=== PATIENT | male | born 1980 | race Two or more races ===

== ENCOUNTER 2018-06-08 13:33 | Inpatient (IN) | payer OTHER ==
[2018-06-08 14:47] VITALS: BMI 31.3
--- NOTE | 2018-06-08 17:58 | HP ---
CIWA Score - Admission Criteria OASAS Guidelines: Admission for Medically Managed Detox: Requires at least one of the followin. CIWA greater than 12 2. Seizures within the past 24 hours 3. Delirium tremens within the past 24 hours 4. Hallucinations within the past 24 hours 5. Acute intervention needed for co occurring medical disorder 6. Acute intervention needed for co occurring psychiatric disorder 7. Severe withdrawal that cannot be handled at a lower level of care (continued vomiting, continued diarrhea, abnormal vital signs) requiring intravenous medication and/or fluids 8. Admission ROS [facility] Chief Complaint: Here for rehab. Allergies/Adverse Reactions: Allergies Allergy/AdvReac Type Severity Reaction Status Date / Time Fish Containing Products Allergy Severe Rash Verified 06/08/18 17:12 penicillin G Allergy Severe Swelling Verified 06/08/18 17:12 History of Present Illness: Discharged fro [facility] on 06/04 after 12 days treatment for depression. States was put on Seroquel and continued on Synthroid. Patient states relapsed with alcohol, Xanax, and heroin last 4 days. States last used on 06/06. Patient on [facility] OT - Clinic 8 - [phone]. States last medicated today w/ methadone 110 mg PO. Denies seizures and blackouts. Hx two overdoses - last in 2009. Exam Limitations: No Limitations - Ebola screening Have you traveled outside of the country in the last 21 days: No (N) Have you had contact with anyone from an Ebola affected area: No Have you been sick,other than usual withdrawal symptoms: No Do you have a fever: No - Review of Systems Constitutional: Diaphoresis, Changes in sleep (Difficulty falling asleep) EENT: reports: Blurred Vision Respiratory: reports: No Symptoms reported Cardiac: reports: No Symptoms Reported GI: reports: No Symptoms Reported : reports: No Symptoms Reported Musculoskeletal: reports: No Symptoms Reported Integumentary: reports: No Symptoms Reported Neuro: reports: Tremors Endocrine: reports: No Symptoms Reported Hematology: reports: No Symptoms Reported Psychiatric: reports: Judgement Intact, Orientated x3, Agitated, Anxious, Depressed (Denies thoughts of harming self or others) Patient History - Patient Medical History Hx Anemia: No Hx Asthma: No Hx Chronic Obstructive Pulmonary Disease (COPD): No Hx Cancer: No Hx Cardiac Disorders: No Hx Congestive Heart Failure: No Hx Hypertension: No Hx Hypercholesterolemia: No Hx Pacemaker: No HX Cerebrovascular Accident: No Hx Seizures: No Hx Dementia: No Hx Diabetes: No Hx Gastrointestinal Disorders: No Hx Liver Disease: No Hx Genitourinary Disorders: No Hx Sexually Transmitted Disorders: No Hx Renal Disease (ESRD): No Hx Thyroid Disease: Yes (On Synthroid) Hx Human Immunodeficiency Virus (HIV): No (NEGATIVE HX) Hx Hepatitis C: Yes (ALSO HEPATITIS A AND B, treated with Harvoni) Hx Depression: Yes Hx Suicide Attempt: No Hx Schizophrenia: No - Patient Surgical History Past Surgical History: No Hx Neurologic Surgery: No Hx Cataract Extraction: No Hx Cardiac Surgery: No Hx Lung Surgery: No Hx Breast Surgery: No Hx Breast Biopsy: No Hx Abdominal Surgery: No Hx Appendectomy: No Hx Cholecystectomy: No Hx Genitourinary Surgery: No Hx Section: No Hx Orthopedic Surgery: No Anesthesia Reaction: No - PPD History Previous Implant?: Yes Documented Results: Negative w/proof Implanted On Prior R Admission?: Yes Date: 04/07/15 Results: 0 mm PPD to be Administered?: Yes - Smoking Cessation Smoking history: Current every day smoker Have you smoked in the past 12 months: Yes Aproximately how many cigarettes per day: 15 Cigars Per Day: 0 Hx Chewing Tobacco Use: No Initiated information on smoking cessation: Yes 'Breaking Loose' booklet given: 06/08/18 - Substance & Tx. History Hx Alcohol Use: Yes Hx Substance Use: Yes Substance Use Type: Alcohol, Cocaine, Heroin - Substances Abused Heroin Route: Injection Frequency: 3-6 times per week Amount used: 6 bags Age of first use: 16 Date of Last Use: 06/06/18 Alcohol-beer Route: Oral Frequency: Daily Amount used: 1-6 pk. Age of first use: 15 Date of Last Use: 06/06/18 Xanax Route: Oral Frequency: Daily Amount used: 10 mg. Age of first use: 15 Date of Last Use: 06/07/18 Cocaine Route: Injection Frequency: 3-6 times per week Age of first use: 15 Date of Last Use: 06/06/18 Family Disease History - Family Disease History Family Disease History: Other: Grandparent (ALCOHOL), Father (ALCOHOL) Admission Physical Exam BHS - Vital Signs Vital Signs: Vital Signs - 24 hr 12/11/18 14:40 Temperature 97.1 F L Pulse Rate 90 Respiratory 20 Rate Blood Pressure 119/62 - Physical General Appearance: Yes: Nourished, Appropriately Dressed, Tremorous (Mild tremors), Sweating (Facial moisture), Anxious HEENTM: Yes: EOMI (Jerking movement of eyes on lateral gaze), Hearing grossly Normal, Normal Voice, CELIA (Pupils = 6 mm), Pharynx Normal Respiratory: Yes: Wheezing (Insp wheeze RUL. No rales, rhonchi. No SOB. Noisy, non-productive cough) Neck: Yes: No masses,lesions,Nodules, Supple Breast: Yes: Breast Exam Deferred Cardiology: Yes: Regular Rhythm, Regular Rate, S1, S2 Abdominal: Yes: Normal Bowel Sounds, Non Tender, Soft Genitourinary: Yes: Within Normal Limits Back: Yes: Normal Inspection Musculoskeletal: Yes: full range of Motion, Gait Steady Extremities: Yes: Normal Capillary Refill, Normal Inspection, Normal Range of Motion, Tremors (Mild tremeoers) Neurological: Yes: media marketing specialist II-XII NML intact (Jerking movement of eyes on lateral gaze), Fully Oriented, Alert, Motor Strength 5/5, Normal Mood/Affect, Normal Response Integumentary: Yes: Normal Color, Dry, Warm, Track Mckinnon (Increased erythema, wamth, and swelling at (R) hand track rafael site.) Lymphatic: Yes: Within Normal Limits - Diagnostic (1) Alcohol use disorder, moderate, in early remission Current Visit: Yes Status: Acute (2) Sedative, hypnotic or anxiolytic use disorder, mild, in early remission Current Visit: Yes Status: Acute (3) Tinea pedis Current Visit: Yes Status: Chronic Qualifiers: Laterality: bilateral Qualified Code(s): B35.3 - Tinea pedis (4) Cellulitis of hand Current Visit: Yes Status: Acute (5) Cocaine dependence Current Visit: No Status: Chronic Qualifiers: Substance use status: uncomplicated Qualified Code(s): F14.20 - Cocaine dependence, uncomplicated (6) Methadone maintenance therapy patient Current Visit: Yes Status: Chronic (7) Inspiratory wheeze on examination Current Visit: Yes Status: Acute Comment: Without dyspnea. With non- productive cough. Denies hx asthma/COPD (8) Nystagmus Current Visit: Yes Status: Suspected (9) Hypothyroid Current Visit: Yes Status: Chronic Qualifiers: Hypothyroidism type: unspecified Qualified Code(s): E03.9 - Hypothyroidism , unspecified Cleared for Admission S - Detox or Rehab Claeared for Rehab Admission: Yes [facility] Breath Alcohol Content Breath Alcohol Content: 0 Urine Drug Screen - Results Drug Screen Negative: No Urine Drug Screen Results: LIANET-Cocaine, OPI-Opiates, BZO-Benzodiazepines, MTD- Methadone Inpatient Rehab Admission - Initial Determination Are CD services needed?: Yes Free of communicable disease: Yes Not in need of hospitalization: Yes - Rehab Admission Criteria Previous failed treatment: Yes Poor recovery environment: Yes Comorbidities: Yes Lacks judgement: No Patient is meeting Inpatient Rehab admission criteria:: Yes
[2018-06-08] MEDS ORDERED: MAGNESIUM HYDROX 2400MG/30ML ORAL SUSPENSION 30 ML CUP PO PRN (18:22)
[2018-06-08] MEDS ORDERED: ACETAMINOPHEN 325 MG TABLET (FP) PO PRN (18:22)
[2018-06-08] MEDS ORDERED: IBUPROFEN 400 MG TABLET (FP) PO PRN (18:22)
[2018-06-08] MEDS ORDERED: MAG HYDROX/AL HYDROX/SIMETH 30 ML UNIT-DOSE CUP PO PRN (18:22)
[2018-06-08] MEDS ORDERED: MENTHOL/PHENOL 1 EACH UD MM PRN (18:22)
[2018-06-08] MEDS ORDERED: MAGNESIUM CITRATE 300 ML BOTTLE PO PRN (18:22)
[2018-06-08] MEDS ORDERED: LOPERAMIDE HCL 2 MG CAPSULE PO PRN (18:22)
[2018-06-08] MEDS ORDERED: hydrOXYzine PAMOATE 50 MG CAPSULE (FP) PO PRN (18:22)
[2018-06-08] MEDS ORDERED: LEVOTHYROXINE NA 125 MCG TABLET (FP) PO SCH (18:30)
[2018-06-08] MEDS ORDERED: LEVOTHYROXINE 100 MCG, LEVOTHYROXINE 25 MCG PO ONE (19:00)
[2018-06-08] MEDS ORDERED: LEVOTHYROXINE NA 100 MCG TABLET (FP) ONE (21:45)
[2018-06-08] MEDS ORDERED: LEVOTHYROXINE NA 25 MCG TABLET (FP) ONE (21:45)
[2018-06-08] MEDS: THIAMINE HCL 100 MG TABLET (FP) PO SCH (21:46)
[2018-06-08] MEDS: MELATONIN 5 MG TABLETS PO PRN (21:47)
[2018-06-08] MEDS: ALBUTEROL SO4 0.083% IH SOL 2.5 MG/3 ML VIAL.NEB. NEB SCH (21:48)
[2018-06-08] MEDS: guaiFENesin 200 MG/10 ML 10 ML UNIT-DOSE CUPS PO SCH (21:50)
[2018-06-08] MEDS: TOLNAFTATE 1% CREAM 15 GM TUBE TP SCH (22:30)
[2018-06-08] MEDS ORDERED: TUBERCULIN PPD 5 TU/0.1ML VIAL ID ONE (23:43)
[2018-06-08] MEDS: CEPHALEXIN MONOHYDRATE 500 MG CAPSULE (UD) PO SCH (23:48)
[2018-06-09] MEDS ORDERED: CEPHALEXIN MONOHYDRATE 500 MG CAPSULE (UD) PO SCH
[2018-06-09] MEDS: guaiFENesin 200 MG/10 ML 10 ML UNIT-DOSE CUPS PO SCH ×4 (00:02→17:55)
[2018-06-09 04:03] LABS: URINE APPEARANCE TURBID; URINE BILIRUBIN NEGATIVE (<2.0 mg/dL); URINE COLOR AMBER; URINE GLUCOSE (UA) NEGATIVE (NEGATIVE); URINE KETONE NEGATIVE (NEGATIVE); URINE LEUK ESTERASE TRACE (NEGATIVE); URINE NITRITE NEGATIVE (NEGATIVE); URINE PROTEIN NEGATIVE (NEGATIVE); URINE UROBILINOGEN 4.0 E.U/dl mg/dL (0.2-1.0)
[2018-06-09 04:39] LABS: EPI CELLS RARE /HPF (FEW); URINE BACTERIA RARE /hpf (NONE SEEN); URINE HYALINE CAST 1 /lpf; URINE MUCUS RARE
[2018-06-09] MEDS: CEPHALEXIN MONOHYDRATE 500 MG CAPSULE (UD) PO SCH ×3 (06:22→17:52)
[2018-06-09] MEDS ORDERED: LEVOTHYROXINE NA 25 MCG TABLET (FP) ONE (06:31)
[2018-06-09] MEDS ORDERED: LEVOTHYROXINE NA 100 MCG TABLET (FP) ONE (06:31)
[2018-06-09] MEDS: LEVOTHYROXINE 100 MCG, LEVOTHYROXINE 25 MCG PO SCH (06:32)
[2018-06-09] MEDS ORDERED: METHADONE HCL 40 MG DISPERSABLE TABLET PO SCH (09:30)
[2018-06-09] MEDS ORDERED: METHADONE HCL 10 MG TABLET ONE (10:24)
[2018-06-09] MEDS ORDERED: METHADONE HCL 40 MG DISPERSABLE TABLET ONE (10:24)
[2018-06-09] MEDS: PRENATAL VITAMINS W/ FOLIC ACID TABLET (FP) PO SCH (10:32)
[2018-06-09] MEDS: METHADONE 80 MG, METHADONE 30 MG PO SCH (10:33)
[2018-06-09] MEDS: NICOTINE 21 MG/24 HOURS TOPICAL PATCH TD SCH (10:33)
[2018-06-09] MEDS: ALBUTEROL SO4 0.083% IH SOL 2.5 MG/3 ML VIAL.NEB. NEB SCH ×2 (10:35→22:19)
[2018-06-09] MEDS: TOLNAFTATE 1% CREAM 15 GM TUBE TP SCH ×2 (10:42→21:44)
[2018-06-09 11:11] LABS: MCH 27.7 pg (25.7-33.7); MCHC 31.6 g/dl (32.0-35.9); MEAN CELL VOLUME 87.8 fl (80-96); MEAN PLT VOLUME 10.1 fl (7.5-11.1); PLATELET COUNT 132 K/MM3 (134-434); RBC 4.33 M/mm3 (4.00-5.60); RDW 14.6 % (11.9-15.9); WHITE BLOOD COUNT 4.4 K/mm3 (4.0-10.0)
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
[2018-06-09] MEDS ORDERED: HALOPERIDOL 5 MG TABLET (FP) PO ONE (11:52)
[2018-06-09 12:14] LABS: ALBUMIN 3.3 g/dl (3.4-5.0); ALK PHOS 64 U/L (45-117); ANION GAP 8 MMOL/L (8-16); BILIRUBIN,TOTAL 0.5 mg/dL (0.2-1); BLOOD UREA NITROGEN 14 mg/dL (7-18); CALCIUM 8.4 mg/dL (8.5-10.1); CHLORIDE 103 mmol/L (98-107); CO2 29 mmol/L (21-32); CREATININE 0.8 mg/dL (0.55-1.3); GLUCOSE,RANDOM 63 mg/dL (74-106); POTASSIUM 4.3 mmol/L (3.5-5.1); SGOT/AST 43 U/L (15-37); SGPT/ALT 68 U/L (13-61); SODIUM 140 mmol/L (136-145)
[2018-06-09] MEDS: NICOTINE POLACRILEX 2 MG GUM BC PRN ×2 (12:29→17:56)
--- NOTE | 2018-06-09 12:29 | EKG ---
Test Reason : Blood Pressure : / mmHG Vent. Rate : 074 BPM Atrial Rate : 074 BPM P-R Int : 178 ms QRS Dur : 078 ms QT Int : 410 ms P-R-T Axes : 067 005 021 degrees QTc Int : 455 ms NORMAL SINUS RHYTHM NORMAL ECG NO PREVIOUS ECGS AVAILABLE Confirmed by MAYKEL PETERSON, CAROLANN ([id number]) on 06/09/2018 12:28:39 PM Referred By: Confirmed By:CAROLANN BRAR MD
[2018-06-09] MEDS: QUEtiapine FUMARATE 200 MG TABLET PO SCH (21:42)
[2018-06-09] MEDS: THIAMINE HCL 100 MG TABLET (FP) PO SCH (21:42)
[2018-06-09] MEDS: BENZTROPINE MESYLATE 1 MG TABLET (FP) PO SCH (21:42)
[2018-06-09] MEDS: HALOPERIDOL 5 MG TABLET (FP) PO SCH (21:42)
[2018-06-10] MEDS: CEPHALEXIN MONOHYDRATE 500 MG CAPSULE (UD) PO SCH ×4 (00:50→17:31)
[2018-06-10] MEDS: guaiFENesin 200 MG/10 ML 10 ML UNIT-DOSE CUPS PO SCH ×3 (00:50→12:20)
[2018-06-10] MEDS ORDERED: METHADONE HCL 10 MG TABLET ONE (03:28)
[2018-06-10] MEDS ORDERED: METHADONE HCL 40 MG DISPERSABLE TABLET ONE (03:28)
[2018-06-10] MEDS ORDERED: LEVOTHYROXINE NA 25 MCG TABLET (FP) ONE (03:29)
[2018-06-10] MEDS ORDERED: LEVOTHYROXINE NA 100 MCG TABLET (FP) ONE (03:29)
[2018-06-10] MEDS: METHADONE 80 MG, METHADONE 30 MG PO SCH (07:00)
[2018-06-10] MEDS: LEVOTHYROXINE 100 MCG, LEVOTHYROXINE 25 MCG PO SCH (07:00)
[2018-06-10] MEDS: NICOTINE 21 MG/24 HOURS TOPICAL PATCH TD SCH (10:34)
[2018-06-10] MEDS: BENZTROPINE MESYLATE 1 MG TABLET (FP) PO SCH ×2 (10:34→21:49)
[2018-06-10] MEDS: PRENATAL VITAMINS W/ FOLIC ACID TABLET (FP) PO SCH (10:34)
[2018-06-10] MEDS: TOLNAFTATE 1% CREAM 15 GM TUBE TP SCH ×2 (10:34→22:27)
[2018-06-10] MEDS: ALBUTEROL SO4 0.083% IH SOL 2.5 MG/3 ML VIAL.NEB. NEB SCH (10:35)
--- NOTE | 2018-06-10 12:18 | PN ---
[facility] Progress Note Note: UA REVIEWED. PATIENT AFEBRILE. +TRACE LEUKOCYTES, NEGATIVE NITRATES. WILL ENCOURAGE ORAL FLUIDS AND CONTINUE TO MONITOR. Vital Signs Temperature 97.7 F 06/10/18 07:00 Pulse Rate 62 06/10/18 07:00 Respiratory Rate 18 06/10/18 07:00 Blood Pressure 135/78 06/10/18 07:00 O2 Sat by Pulse Oximetry (%) Laboratory Tests 06/09/18 06/09/18 06/09/18 00:05 07:30 07:30 WBC 4.4 RBC 4.33 Hgb 12.0 Hct 38.0 MCV 87.8 MCH 27.7 MCHC 31.6 L RDW 14.6 D Plt Count 132 L MPV 10.1 Sodium 140 Potassium 4.3 Chloride 103 Carbon Dioxide 29 Anion Gap 8 BUN 14 Creatinine 0.8 Creat Clearance w eGFR > 60 Random Glucose 63 L Calcium 8.4 L Total Bilirubin 0.5 AST 43 H ALT 68 H Alkaline Phosphatase 64 Total Protein 7.0 Albumin 3.3 L Total T3 Urine Color Wanda Urine Appearance Turbid Urine pH 6.0 Ur Specific [place] 1.024 Urine Protein Negative Urine Glucose (UA) Negative Urine Ketones Negative Urine Blood Negative Urine Nitrite Negative Urine Bilirubin Negative Urine Urobilinogen 4.0 e.u/dl Ur Leukocyte Esterase Trace Urine WBC (Auto) 3 Urine RBC (Auto) 3 Ur Epithelial Cells Rare Urine Bacteria Rare Hyaline Casts 1 Urine Mucus Rare RPR Titer HIV 1&2 Antibody Screen HIV P24 Antigen 06/09/18 06/09/18 06/09/18 07:30 07:30 07:30 WBC RBC Hgb Hct MCV MCH MCHC RDW Plt Count MPV Sodium Potassium Chloride Carbon Dioxide Anion Gap BUN Creatinine Creat Clearance w eGFR Random Glucose Calcium Total Bilirubin AST ALT Alkaline Phosphatase Total Protein Albumin Total T3 154.00 Urine Color Urine Appearance Urine pH Ur Specific [place] Urine Protein Urine Glucose (UA) Urine Ketones Urine Blood Urine Nitrite Urine Bilirubin Urine Urobilinogen Ur Leukocyte Esterase Urine WBC (Auto) Urine RBC (Auto) Ur Epithelial Cells Urine Bacteria Hyaline Casts Urine Mucus RPR Titer Nonreactive HIV 1&2 Antibody Screen Negative HIV P24 Antigen Negative
[2018-06-10] MEDS: NICOTINE POLACRILEX 2 MG GUM BC PRN (17:57)
[2018-06-10] MEDS: QUEtiapine FUMARATE 200 MG TABLET PO SCH (21:49)
[2018-06-10] MEDS: HALOPERIDOL 5 MG TABLET (FP) PO SCH (21:49)
[2018-06-10] MEDS: THIAMINE HCL 100 MG TABLET (FP) PO SCH (21:49)
[2018-06-11] MEDS: CEPHALEXIN MONOHYDRATE 500 MG CAPSULE (UD) PO SCH ×5 (00:08→23:08)
[2018-06-11] MEDS ORDERED: METHADONE HCL 40 MG DISPERSABLE TABLET ONE (04:04)
[2018-06-11] MEDS ORDERED: METHADONE HCL 10 MG TABLET ONE (04:04)
[2018-06-11] MEDS ORDERED: LEVOTHYROXINE NA 25 MCG TABLET (FP) ONE (04:05)
[2018-06-11] MEDS ORDERED: LEVOTHYROXINE NA 100 MCG TABLET (FP) ONE (04:05)
[2018-06-11] MEDS: LEVOTHYROXINE 100 MCG, LEVOTHYROXINE 25 MCG PO SCH (06:13)
[2018-06-11] MEDS: METHADONE 80 MG, METHADONE 30 MG PO SCH (06:14)
[2018-06-11] MEDS: NICOTINE POLACRILEX 2 MG GUM BC PRN ×3 (11:14→21:44)
[2018-06-11] MEDS: BENZTROPINE MESYLATE 1 MG TABLET (FP) PO SCH ×2 (11:14→21:42)
[2018-06-11] MEDS: PRENATAL VITAMINS W/ FOLIC ACID TABLET (FP) PO SCH (11:14)
[2018-06-11] MEDS: NICOTINE 21 MG/24 HOURS TOPICAL PATCH TD SCH (11:14)
[2018-06-11] MEDS: TOLNAFTATE 1% CREAM 15 GM TUBE TP SCH ×2 (11:15→22:09)
[2018-06-11] MEDS ORDERED: ALBUTEROL SO4 0.083% IH SOL 2.5 MG/3 ML VIAL.NEB. NEB PRN (20:49)
[2018-06-11] MEDS: QUEtiapine FUMARATE 200 MG TABLET PO SCH (21:42)
[2018-06-11] MEDS: THIAMINE HCL 100 MG TABLET (FP) PO SCH (21:42)
[2018-06-11] MEDS: HALOPERIDOL 5 MG TABLET (FP) PO SCH (21:42)
[2018-06-12] MEDS ORDERED: METHADONE HCL 10 MG TABLET ONE (03:07)
[2018-06-12] MEDS ORDERED: METHADONE HCL 40 MG DISPERSABLE TABLET ONE (03:07)
[2018-06-12] MEDS ORDERED: LEVOTHYROXINE NA 100 MCG TABLET (FP) ONE (03:08)
[2018-06-12] MEDS ORDERED: LEVOTHYROXINE NA 25 MCG TABLET (FP) ONE (03:08)
[2018-06-12] MEDS: CEPHALEXIN MONOHYDRATE 500 MG CAPSULE (UD) PO SCH ×4 (06:54→23:06)
[2018-06-12] MEDS: LEVOTHYROXINE 100 MCG, LEVOTHYROXINE 25 MCG PO SCH (06:54)
[2018-06-12] MEDS: METHADONE 80 MG, METHADONE 30 MG PO SCH (06:54)
[2018-06-12] MEDS: NICOTINE 21 MG/24 HOURS TOPICAL PATCH TD SCH (10:29)
[2018-06-12] MEDS: BENZTROPINE MESYLATE 1 MG TABLET (FP) PO SCH ×2 (10:29→21:47)
[2018-06-12] MEDS: PRENATAL VITAMINS W/ FOLIC ACID TABLET (FP) PO SCH (10:29)
[2018-06-12] MEDS: NICOTINE POLACRILEX 2 MG GUM BC PRN ×4 (10:30→21:48)
[2018-06-12] MEDS: TOLNAFTATE 1% CREAM 15 GM TUBE TP SCH ×2 (10:31→21:48)
[2018-06-12] MEDS: THIAMINE HCL 100 MG TABLET (FP) PO SCH (21:47)
[2018-06-12] MEDS: QUEtiapine FUMARATE 200 MG TABLET PO SCH (21:47)
[2018-06-12] MEDS: HALOPERIDOL 5 MG TABLET (FP) PO SCH (21:47)
[2018-06-13] MEDS ORDERED: METHADONE HCL 10 MG TABLET ONE (02:50)
[2018-06-13] MEDS ORDERED: METHADONE HCL 40 MG DISPERSABLE TABLET ONE (02:50)
[2018-06-13] MEDS ORDERED: LEVOTHYROXINE NA 100 MCG TABLET (FP) ONE (02:51)
[2018-06-13] MEDS ORDERED: LEVOTHYROXINE NA 25 MCG TABLET (FP) ONE (02:51)
[2018-06-13] MEDS: CEPHALEXIN MONOHYDRATE 500 MG CAPSULE (UD) PO SCH ×4 (06:55→23:39)
[2018-06-13] MEDS: LEVOTHYROXINE 100 MCG, LEVOTHYROXINE 25 MCG PO SCH (06:55)
[2018-06-13] MEDS: METHADONE 80 MG, METHADONE 30 MG PO SCH (06:56)
[2018-06-13] MEDS: PRENATAL VITAMINS W/ FOLIC ACID TABLET (FP) PO SCH (10:06)
[2018-06-13] MEDS: TOLNAFTATE 1% CREAM 15 GM TUBE TP SCH ×2 (10:06→21:45)
[2018-06-13] MEDS: BENZTROPINE MESYLATE 1 MG TABLET (FP) PO SCH ×2 (10:06→21:44)
[2018-06-13] MEDS: NICOTINE 21 MG/24 HOURS TOPICAL PATCH TD SCH (10:06)
[2018-06-13] MEDS: NICOTINE POLACRILEX 2 MG GUM BC PRN ×3 (10:08→20:39)
[2018-06-13] MEDS: THIAMINE HCL 100 MG TABLET (FP) PO SCH (21:44)
[2018-06-13] MEDS: HALOPERIDOL 5 MG TABLET (FP) PO SCH (21:44)
[2018-06-13] MEDS: QUEtiapine FUMARATE 200 MG TABLET PO SCH (21:45)
[2018-06-13] MEDS: MELATONIN 5 MG TABLETS PO PRN (23:39)
[2018-06-14] MEDS ORDERED: METHADONE HCL 40 MG DISPERSABLE TABLET ONE (03:09)
[2018-06-14] MEDS ORDERED: METHADONE HCL 10 MG TABLET ONE (03:09)
[2018-06-14] MEDS ORDERED: LEVOTHYROXINE NA 25 MCG TABLET (FP) ONE (06:50)
[2018-06-14] MEDS ORDERED: LEVOTHYROXINE NA 100 MCG TABLET (FP) ONE (06:50)
[2018-06-14] MEDS: METHADONE 80 MG, METHADONE 30 MG PO SCH (06:53)
[2018-06-14] MEDS: LEVOTHYROXINE 100 MCG, LEVOTHYROXINE 25 MCG PO SCH (06:54)
[2018-06-14] MEDS: CEPHALEXIN MONOHYDRATE 500 MG CAPSULE (UD) PO SCH (06:54)
[2018-06-14 06:56] VITALS: BP 115/68; PULSE 65; TEMP 98.1
[2018-06-14] MEDS: NICOTINE POLACRILEX 2 MG GUM BC PRN (09:37)
[2018-06-14] MEDS: NICOTINE 21 MG/24 HOURS TOPICAL PATCH TD SCH (10:12)
[2018-06-14] MEDS: BENZTROPINE MESYLATE 1 MG TABLET (FP) PO SCH (10:12)
[2018-06-14] MEDS: TOLNAFTATE 1% CREAM 15 GM TUBE TP SCH (10:12)
[2018-06-14] MEDS: PRENATAL VITAMINS W/ FOLIC ACID TABLET (FP) PO SCH (10:12)
--- NOTE | 2018-06-14 10:18 | PN ---
Psychiatric Progress Note Vital Signs: Vital Signs Period Temp Pulse Resp BP Sys/Martinez Pulse Ox Last 24 Hr 98.1 F 65 18- 115/68 Date of Session: 06/14/18 Chief Complaint:: Discharge Note HPI: Patient addressing Alcohol, Cocaine and Sedative, hypnotic or Anxiolytic Dependence comorbid with Opioid Dependence on Agonist Therapy, Nicotine Dependence and Paranoid Schizophrenia ROS: Hypothyroidism, Hep C, Hep A, Hep B, Cellulitis of hand Current Medications: Active Medications Generic Name Dose Route Start Last Admin Trade Name Freq PRN Reason Stop Dose Admin Acetaminophen 650 mg 06/08/18 18:22 Tylenol - PO Q4H PRN FEVER Al Hydroxide/Mg Hydroxide 30 ml 06/08/18 18:22 Mylanta Oral Suspension - PO Q6H PRN DYSPEPSIA Albuterol Sulfate 1 amp 06/11/18 20:49 06/13/18 16:06 Ventolin 0.083% Nebulizer Soln - NEB 1 amp Q6H PRN Administration SHORT OF BREATH/WHEEZING Benztropine Mesylate 1 mg 06/09/18 22:00 06/13/18 21:44 Cogentin - PO 1 mg BID SKY Administration Cephalexin HCl 500 mg 06/09/18 00:00 06/14/18 06:54 Keflex - PO 06/18/18 18:01 500 mg Q6HPO SKY Administration Eucalyptus/Menthol/Phenol/Sorbitol 1 each 06/08/18 18:22 Cepastat Lozenge - MM Q4H PRN SORE THROAT Haloperidol 15 mg 06/09/18 22:00 06/13/18 21:44 Haldol - PO 15 mg HS SKY Administration Hydroxyzine Pamoate 50 mg 06/08/18 18:22 06/11/18 18:04 Vistaril - PO 50 mg Q4H PRN Administration AGITATION Ibuprofen 400 mg 06/08/18 18:22 Motrin - PO Q6H PRN Pain level 4-6 Levothyroxine Sodium 100 mcg/ 125 mcg 06/09/18 07:00 06/14/18 06:54 Levothyroxine Sodium 25 mcg PO 125 mcg DAILY@0700 SKY Administration Loperamide HCl 4 mg 06/08/18 18:22 Imodium - PO Q6H PRN DIARRHEA Magnesium Citrate 300 ml 06/08/18 18:22 Citroma - PO Q48H PRN CONSTIPATION Magnesium Hydroxide 30 ml 06/08/18 18:22 Milk Of Magnesia - PO DAILY PRN CONSTIPATION Melatonin 5 mg 06/08/18 22:00 06/13/18 23:39 Melatonin PO 5 mg HS PRN Administration INSOMNIA Methadone HCl 80 mg/ Methadone 110 mg 06/09/18 09:45 06/14/18 06:53 HCl 30 mg PO 06/16/18 09:44 110 mg DAILY@0600 SKY Administration Nicotine 21 mg 06/09/18 10:00 06/13/18 10:06 Nicoderm Patch - TD Not Given DAILY SKY Nicotine Polacrilex 2 mg 06/08/18 18:22 06/14/18 09:37 Nicorette Gum - BC 2 mg Q2H PRN Administration NICOTINE REPLACEMENT RX Multivit/Folic Acid/Iron 1 tab 06/09/18 10:00 06/13/18 10:06 Vitamins (Sjr) - PO 1 tab DAILY SKY Administration Quetiapine Fumarate 200 mg 06/09/18 22:00 06/13/18 21:45 Seroquel - PO 200 mg HS SKY Administration Thiamine HCl 100 mg 06/08/18 22:00 06/13/18 21:44 Vitamin B1 - PO 100 mg HS SKY Administration Tolnaftate 1 applic 06/08/18 22:00 06/13/18 21:45 Tinactin 1% Cream - TP 1 applic BID SKY Administration Current Side Effect: No Lab tests ordered: Yes Lab tests reviewed: Yes Provider note:: Patient has completed this program today. He has partially met his treatment goals and will continue to address his issues in outpatient treatment at [facility]. Told policy writer sales that from his participation in this program, he has learned the importance of making meetings, get a sponsor and avoid his triggers. He responded well to Haldol 15 mg po HS, Cogentin 0.5 mg po BID and Seroquel 200 mg po HS. Scripts for 30 days supply of these medications are electronically transmitted to [facility] at [address] [place] [address]. He is stable for discharge today Total face to face time:: 35 Mental Status Exam - Mental Status Exam Alert and Oriented to: Time, Place, Person Cognitive Function: Fair Patient Appearance: Well Groomed Mood: Hopeful, Euthymic Affect: Appropriate Patient Behavior: Cooperative Speech Pattern: Clear Voice Loudness: Normal Thought Process: Intact, Goal Oriented Thought Disorder: Not Present Hallucinations: Denies Suicidal Ideation: Denies Homicidal Ideation: Denies Insight/Judgement: Fair Sleep: Fair Appetite: Good Muscle strength/Tone: Normal Gait/Station: Normal Psychiatric Treatment Plan - Problem List (1) Alcohol dependence Current Visit: Yes (2) Cocaine dependence Current Visit: No Qualifiers: Substance use status: uncomplicated Qualified Code(s): F14.20 - Cocaine dependence, uncomplicated (3) Sedative hypnotic or anxiolytic dependence Current Visit: Yes (4) Opioid dependence on agonist therapy Current Visit: Yes (5) Nicotine dependence Current Visit: Yes (6) Paranoid schizophrenia Current Visit: Yes (7) Cellulitis of hand Current Visit: Yes (8) Hypothyroid Current Visit: Yes Qualifiers: Hypothyroidism type: unspecified Qualified Code(s): E03.9 - Hypothyroidism , unspecified (9) Hepatitis A Current Visit: No (10) Hepatitis B carrier Current Visit: No (11) Hepatitis C carrier Current Visit: No Initial treatment plan: Patient is discharged today and referred to [facility] for outpatient treatment
--- NOTE | 2018-06-14 11:39 | PN ---
[facility] Progress Note Note: PT DISCHARGED TODAY FROM [facility]. ALERT O X 3. PT TO FOLLOW UP WITH PRIMARY CARE AT [facility]. Vital Signs 06/14/18 06:55 Temperature 98.1 F Pulse Rate 65 Respiratory 18 Rate Blood Pressure 115/68 Laboratory Tests 06/09/18 06/09/18 06/09/18 00:05 07:30 07:30 WBC 4.4 RBC 4.33 Hgb 12.0 Hct 38.0 MCV 87.8 MCH 27.7 MCHC 31.6 L RDW 14.6 D Plt Count 132 L MPV 10.1 Sodium 140 Potassium 4.3 Chloride 103 Carbon Dioxide 29 Anion Gap 8 BUN 14 Creatinine 0.8 Creat Clearance w eGFR > 60 Random Glucose 63 L Calcium 8.4 L Total Bilirubin 0.5 AST 43 H ALT 68 H Alkaline Phosphatase 64 Total Protein 7.0 Albumin 3.3 L Total T3 Urine Color Wanda Urine Appearance Turbid Urine pH 6.0 Ur Specific [place] 1.024 Urine Protein Negative Urine Glucose (UA) Negative Urine Ketones Negative Urine Blood Negative Urine Nitrite Negative Urine Bilirubin Negative Urine Urobilinogen 4.0 e.u/dl Ur Leukocyte Esterase Trace Urine WBC (Auto) 3 Urine RBC (Auto) 3 Ur Epithelial Cells Rare Urine Bacteria Rare Hyaline Casts 1 Urine Mucus Rare RPR Titer HIV 1&2 Antibody Screen HIV P24 Antigen 06/09/18 06/09/18 06/09/18 07:30 07:30 07:30 WBC RBC Hgb Hct MCV MCH MCHC RDW Plt Count MPV Sodium Potassium Chloride Carbon Dioxide Anion Gap BUN Creatinine Creat Clearance w eGFR Random Glucose Calcium Total Bilirubin AST ALT Alkaline Phosphatase Total Protein Albumin Total T3 154.00 Urine Color Urine Appearance Urine pH Ur Specific [place] Urine Protein Urine Glucose (UA) Urine Ketones Urine Blood Urine Nitrite Urine Bilirubin Urine Urobilinogen Ur Leukocyte Esterase Urine WBC (Auto) Urine RBC (Auto) Ur Epithelial Cells Urine Bacteria Hyaline Casts Urine Mucus RPR Titer Nonreactive HIV 1&2 Antibody Screen Negative HIV P24 Antigen Negative NAD PLAN:FOLLOW UP WITH PRIMARY CARE AT [facility].
== END 2018-06-14 10:25 | disposition home or self-care (01) | DRG 772 ==
LOC: YASAS 13:33 → Y5N 17:40
PROVIDERS: ADMIT Psychiatry & Neurology Psychiatry; ATTEND Psychiatry & Neurology Psychiatry
PROC: HZ42ZZZ Group Counseling for Substance Abuse Treatment, Cognitive-Behavioral (ICD-10-PCS; principal; 2018-06-08)
DX: F10.20 Alcohol dependence, uncomplicated (principal); F11.20 Opioid dependence, uncomplicated; F13.20 Sedative, hypnotic or anxiolytic dependence, uncomplicated; F14.20 Cocaine dependence, uncomplicated; F17.210 Nicotine dependence, cigarettes, uncomplicated; F20.0 Paranoid schizophrenia; E03.9 Hypothyroidism, unspecified; B18.1 Chronic viral hepatitis B without delta-agent; B18.2 Chronic viral hepatitis C; L03.113 Cellulitis of right upper limb; Z88.0 Allergy status to penicillin; Z91.013 Allergy to seafood
CPT/HCPCS: 36415; 80053; 81003; 81015; 84436; 84480; 85027; 86593; 87389; 93005; 93010; 94640

== ENCOUNTER 2018-07-12 11:10 | Inpatient (IN) | payer OTHER ==
[2018-07-12 11:28] VITALS: BMI 31.0
--- NOTE | 2018-07-12 14:05 | HP ---
CIWA Score Nausea/Vomitin-No Nausea/No Vomiting Muscle Tremors: 4-Moderate,w/Arms Extend Anxiety: 4-Mod. Anxious/Guarded Agitation: 4-Moderately Restless Paroxysmal Sweats: 3 Orientation: 0-Oriented Tacttile Disturbances: 0-None Auditory Disturbances: 0-None Visual Disturbances: 0-None Headache: 0-None Present CIWA-Ar Total Score: 15 - Admission Criteria OASAS Guidelines: Admission for Medically Managed Detox: Requires at least one of the followin. CIWA greater than 12 2. Seizures within the past 24 hours 3. Delirium tremens within the past 24 hours 4. Hallucinations within the past 24 hours 5. Acute intervention needed for co occurring medical disorder 6. Acute intervention needed for co occurring psychiatric disorder 7. Severe withdrawal that cannot be handled at a lower level of care (continued vomiting, continued diarrhea, abnormal vital signs) requiring intravenous medication and/or fluids 8. Admission ROS [facility] Chief Complaint: I am here for detox. Allergies/Adverse Reactions: Allergies Allergy/AdvReac Type Severity Reaction Status Date / Time Fish Containing Products Allergy Severe Rash Verified 07/12/18 13:15 penicillin G Allergy Severe Swelling Verified 07/12/18 13:15 History of Present Illness: pt is a 37yr old male with a history of alcohol and xanax dependence seeking detox for treatment. Exam Limitations: No Limitations - Ebola screening Have you traveled outside of the country in the last 21 days: No Have you had contact with anyone from an Ebola affected area: No Have you been sick,other than usual withdrawal symptoms: No Do you have a fever: No - Review of Systems Constitutional: Chills, Diaphoresis, Loss of Appetite, Night Sweats, Changes in sleep EENT: reports: No Symptoms Reported Respiratory: reports: No Symptoms reported Cardiac: reports: No Symptoms Reported GI: reports: Poor Appetite, Poor Fluid Intake : reports: No Symptoms Reported Musculoskeletal: reports: Joint Pain, Muscle Pain Integumentary: reports: No Symptoms Reported Neuro: reports: Tingling, Tremors Endocrine: reports: Flushing Hematology: reports: No Symptoms Reported Psychiatric: reports: Judgement Intact, Orientated x3, Agitated, Anxious Other Systems: Reviewed and Negative Patient History - Patient Medical History Hx Anemia: No Hx Asthma: No Hx Chronic Obstructive Pulmonary Disease (COPD): No Hx Cancer: No Hx Cardiac Disorders: No Hx Congestive Heart Failure: No Hx Hypertension: No Hx Hypercholesterolemia: No Hx Pacemaker: No HX Cerebrovascular Accident: No Hx Seizures: No Hx Dementia: No Hx Diabetes: No Hx Gastrointestinal Disorders: No Hx Liver Disease: No Hx Genitourinary Disorders: No Hx Sexually Transmitted Disorders: No Hx Renal Disease (ESRD): No Hx Thyroid Disease: Yes (On Synthroid) Hx Human Immunodeficiency Virus (HIV): No (NEGATIVE HX) Hx Hepatitis C: Yes (ALSO HEPATITIS A AND B, treated with Harvoni) Hx Depression: Yes Hx Suicide Attempt: No (denies) Hx Bipolar Disorder: Yes Hx Schizophrenia: Yes - Patient Surgical History Past Surgical History: No Hx Neurologic Surgery: No Hx Cataract Extraction: No Hx Cardiac Surgery: No Hx Lung Surgery: No Hx Breast Surgery: No Hx Breast Biopsy: No Hx Abdominal Surgery: No Hx Appendectomy: No Hx Cholecystectomy: No Hx Genitourinary Surgery: No Hx Section: No Hx Orthopedic Surgery: No Anesthesia Reaction: No - PPD History Previous Implant?: Yes Documented Results: Negative w/proof Implanted On Prior R Admission?: Yes Date: 06/10/18 Results: 1 mm PPD to be Administered?: No - Reproductive History Patient is a Female of Child Bearing Age (11 -55 yrs old): No - Smoking Cessation Smoking history: Current every day smoker Have you smoked in the past 12 months: Yes Aproximately how many cigarettes per day: 20 Cigars Per Day: 0 Hx Chewing Tobacco Use: No Initiated information on smoking cessation: Yes 'Breaking Loose' booklet given: 07/12/18 - Substance & Tx. History Hx Alcohol Use: Yes Hx Substance Use: Yes Substance Use Type: Alcohol, Tranquilizers Hx Substance Use Treatment: Yes (last detox 05/2018) - Substances Abused Alcohol-vodka/beer Route: Oral Frequency: Daily Amount used: 2 pts./1-6 pk. Age of first use: 15 Date of Last Use: 07/11/18 Xanax Route: Oral Frequency: Daily Amount used: 12 tabs. (2 mg.) Age of first use: 17 Date of Last Use: 07/11/18 Family Disease History - Family Disease History Family Disease History: Other: Grandparent (ALCOHOL), Father (ALCOHOL) Admission Physical Exam [facility] - Vital Signs Vital Signs: Vital Signs - 24 hr 07/12/18 11:26 Temperature 98.5 F Pulse Rate 62 Respiratory 20 Rate Blood Pressure 134/85 - Physical General Appearance: Yes: Appropriately Dressed, Moderate Distress, Tremorous, Irritable, Sweating, Anxious HEENTM: Yes: Hearing grossly Normal, Normal Voice, Nasal Congestion, Rhinorrhea Respiratory: Yes: Lungs Clear, Normal Breath Sounds, No Respiratory Distress Neck: Yes: No masses,lesions,Nodules Breast: Yes: Within Normal Limits Cardiology: Yes: Regular Rhythm, Regular Rate, S1, S2 Abdominal: Yes: Normal Bowel Sounds, Non Tender, Soft Genitourinary: Yes: Within Normal Limits Back: Yes: Normal Inspection Musculoskeletal: Yes: Back pain, Muscle Pain Extremities: Yes: Tremors Neurological: Yes: Fully Oriented, Alert, Normal Response Integumentary: Yes: Diaphoresis Lymphatic: Yes: Within Normal Limits - Diagnostic (1) Alcohol dependence with withdrawal, uncomplicated Current Visit: Yes Status: Chronic (2) Bipolar disorder Current Visit: No Status: Acute (3) Hepatitis A Current Visit: No Status: Acute (4) Hepatitis B carrier Current Visit: No Status: Acute (5) Nicotine dependence Current Visit: Yes Status: Chronic Qualifiers: Nicotine product type: cigarettes Substance use status: uncomplicated Qualified Code(s): F17.210 - Nicotine dependence, cigarettes, uncomplicated (6) Paranoid schizophrenia Current Visit: Yes Status: Chronic (7) Sedative/hypnotic withdrawal without complication Current Visit: Yes Status: Chronic (8) Cocaine dependence Current Visit: Yes Status: Chronic Qualifiers: Substance use status: uncomplicated (9) Hepatitis C carrier Current Visit: Yes Status: Chronic (10) Hypothyroid Current Visit: Yes Status: Chronic Qualifiers: Hypothyroidism type: unspecified Qualified Code(s): E03.9 - Hypothyroidism , unspecified (11) Methadone maintenance therapy patient Current Visit: Yes Status: Chronic Comment: dose verified with [facility] with RENAE Marie and RENAE Gordon. last received today. (12) Nystagmus Current Visit: No Status: Suspected Cleared for Admission S - Detox or Rehab [facility] Level of Care: Medically Managed Detox Regimen/Protocol: Valium [facility] Breath Alcohol Content Breath Alcohol Content: 0 Urine Drug Screen - Results Drug Screen Negative: No Urine Drug Screen Results: THC-Marijuana, LIANET-Cocaine, BZO-Benzodiazepines, MTD- Methadone
[2018-07-12] MEDS ORDERED: ACETAMINOPHEN 325 MG TABLET (FP) PO PRN (14:06)
[2018-07-12] MEDS ORDERED: MENTHOL/PHENOL 1 EACH UD MM PRN (14:06)
[2018-07-12] MEDS ORDERED: MAG HYDROX/AL HYDROX/SIMETH 30 ML UNIT-DOSE CUP PO PRN (14:06)
[2018-07-12] MEDS ORDERED: MAGNESIUM CITRATE 300 ML BOTTLE PO PRN (14:06)
[2018-07-12] MEDS ORDERED: hydrOXYzine PAMOATE 50 MG CAPSULE (FP) PO PRN (14:06)
[2018-07-12] MEDS ORDERED: MAGNESIUM HYDROX 2400MG/30ML ORAL SUSPENSION 30 ML CUP PO PRN (14:06)
[2018-07-12] MEDS ORDERED: IBUPROFEN 400 MG TABLET (FP) PO PRN (14:06)
[2018-07-12] MEDS ORDERED: LOPERAMIDE HCL 2 MG CAPSULE PO PRN (14:06)
[2018-07-12] MEDS ORDERED: P-EPHED 60MG/TRIPROLIDI 2.5MG TABLET PO PRN (14:06)
[2018-07-12] MEDS ORDERED: guaiFENesin/D-METHORPHAN HB 10 ML UNIT-DOSE CUPS PO PRN (14:06)
[2018-07-12] MEDS ORDERED: NICOTINE POLACRILEX 4 MG GUM BUC PRN (14:06)
[2018-07-12] MEDS ORDERED: diazePAM 5 MG TABLET PO ONE (15:15)
--- NOTE | 2018-07-12 15:40 | CONSULT ---
[facility] Psychiatric Consult - Data Date of interview: 07/12/18 Admission source: [facility] Identifying data: This is a 37 years old male, single, homeless, with no financial support, with history of Paranoid Schizophrenia, history of psychiatric hospitalizations,is here seeking detox reporting Alcohol withdrawal symptomspt is a 37yr old male with a history of alcohol and xanax dependence seeking detox for treatment. Patient reports abusing Alcohol, Xanax, Cocaine, Nicotine Substance Abuse History: Smoking history: Current every day smoker. Have you smoked in the past 12 months: Yes. Aproximately how many cigarettes per day: 20. Cigars Per Day: 0. Hx Chewing Tobacco Use: No. Initiated information on smoking cessation: Yes. 'Breaking Loose' booklet given: 07/12/18. - Substance & Tx. History. Hx Alcohol Use: Yes. Hx Substance Use: Yes. Substance Use Type : Alcohol, Tranquilizers. Hx Substance Use Treatment: Yes (last detox 05/2018) . - Substances Abused. Alcohol-vodka/beer. Route: Oral. Frequency: Daily. Amount used: 2 pts./1-6 pk. Age of first use: 15. Date of Last Use: . Xanax. Route: Oral. Frequency: Daily. Amount used: 12 tabs. (2 mg.). Age of first use: 17. Date of Last Use: 07/11/18 Medical History: MMTP 120 poer day, HepA,B,C,Hypothyroiditis history, Psychiatric History: Patient reports to carry Schizophrenis with most recent psychiatoric hospitalization at [facility] due to hearing voices. Reports taking prior to admission: Seroquel 200mg po qhs. Haldol 15mg po qhs. [id number] suyicidal, homicidal history Physical/Sexual Abuse/Trauma History: Denies Additional Comment: Seroquel 200mg po qhs. Haldol 15mg po qhs Mental Status Exam - Mental Status Exam Alert and Oriented to: Person Cognitive Function: Fair Patient Appearance: Well Groomed Mood: Apprehensive Affect: Mood Congruent Patient Behavior: Cooperative Speech Pattern: Appropriate Voice Loudness: Normal Thought Process: Goal Oriented Thought Disorder: Being Controlled Hallucinations: Denies Suicidal Ideation: Denies Homicidal Ideation: Denies Insight/Judgement: Fair Appetite: Weight gain Muscle strength/Tone: Normal Gait/Station: Normal Additional Comments: Seroquel 200mg po qhs. Haldol 15mg po qhs Psychiatric Findings - Problem List ([place] 1, 2,3) (1) Alcohol dependence with withdrawal, uncomplicated Current Visit: Yes Status: Chronic (2) Cocaine dependence Current Visit: Yes Status: Chronic Qualifiers: Substance use status: uncomplicated Qualified Code(s): F14.20 - Cocaine dependence, uncomplicated (3) Hepatitis C carrier Current Visit: Yes Status: Chronic (4) Hypothyroid Current Visit: Yes Status: Chronic Qualifiers: Hypothyroidism type: unspecified Qualified Code(s): E03.9 - Hypothyroidism , unspecified (5) Methadone maintenance therapy patient Current Visit: Yes Status: Chronic Comment: dose verified with [facility] with RENAE Marie and RENAE Gordon. last received today. (6) Paranoid schizophrenia Current Visit: Yes Status: Chronic (7) Sedative/hypnotic withdrawal without complication Current Visit: Yes Status: Chronic (8) Bipolar disorder Current Visit: No Status: Acute (9) Hepatitis A Current Visit: No Status: Acute (10) Hepatitis B carrier Current Visit: No Status: Acute - Initial Treatment Plan Initial Treatment Plan: Seroquel 200mg po qhs. Haldol 15mg po qhs
--- NOTE | 2018-07-12 16:53 | PN ---
S Progress Note Note: Pt was admitted today. First BP on the floor 190/101 and R hand 211/105. Pt with no h/o high BP. Rec;d valium about 1 hour ago. Will give clonidine 0.2 mg stat and monitor BP. Can give lisinopril 40mg stat if this fails to decrease BP.
[2018-07-12] MEDS ORDERED: cloNIDine HCL 0.1 MG TABLET PO ONE (17:00)
[2018-07-12] MEDS: diazePAM 5 MG TABLET PO PRN (20:58)
[2018-07-12] MEDS ORDERED: MELATONIN 5 MG TABLETS PO PRN (22:00)
[2018-07-12] MEDS: diazePAM 5 MG TABLET PO SCH (22:19)
[2018-07-12] MEDS: THIAMINE HCL 100 MG TABLET (FP) PO SCH (22:19)
[2018-07-12] MEDS: QUEtiapine FUMARATE 200 MG TABLET PO SCH (22:19)
[2018-07-12] MEDS: HALOPERIDOL 5 MG TABLET (FP) PO SCH (22:19)
[2018-07-13] MEDS ORDERED: METHADONE HCL 40 MG DISPERSABLE TABLET PO SCH (06:00)
[2018-07-13] MEDS ORDERED: LEVOTHYROXINE NA 125 MCG TABLET (FP) PO SCH (07:00)
[2018-07-13] MEDS: PRENATAL VITAMINS W/ FOLIC ACID TABLET (FP) PO SCH (10:15)
[2018-07-13] MEDS: NICOTINE 21 MG/24 HOURS TOPICAL PATCH TD SCH (10:15)
[2018-07-13] MEDS: diazePAM 5 MG TABLET PO SCH ×3 (10:15→22:43)
[2018-07-13 11:36] LABS: ALBUMIN 3.4 g/dl (3.4-5.0); ALK PHOS 74 U/L (45-117); ANION GAP 7 MMOL/L (8-16); BILIRUBIN,TOTAL 0.5 mg/dL (0.2-1); BLOOD UREA NITROGEN 9 mg/dL (7-18); CALCIUM 8.8 mg/dL (8.5-10.1); CHLORIDE 106 mmol/L (98-107); CO2 28 mmol/L (21-32); CREATININE 0.8 mg/dL (0.55-1.3); GLUCOSE,RANDOM 101 mg/dL (74-106); SGOT/AST 78 U/L (15-37); SGPT/ALT 95 U/L (13-61); SODIUM 141 mmol/L (136-145); TOT PROT 7.2 g/dl (6.4-8.2)
[2018-07-13 11:58] LABS: HEMATOCRIT 36.4 % (35.4-49); HEMOGLOBIN 11.8 GM/dL (11.7-16.9); MCH 28.5 pg (25.7-33.7); MCHC 32.4 g/dl (32.0-35.9); MEAN PLT VOLUME 11.1 fl (7.5-11.1); PLATELET COUNT 139 K/MM3 (134-434); RBC 4.14 M/mm3 (4.00-5.60); RDW 14.7 % (11.9-15.9); WHITE BLOOD COUNT 4.7 K/mm3 (4.0-10.0)
--- NOTE | 2018-07-13 15:37 | PN ---
S CIWA - CIWA Score Nausea/Vomitin-No Nausea/No Vomiting Muscle Tremors: None Anxiety: 0-No Anxiety, at Ease Agitation: 0-Normal Activity Paroxysmal Sweats: 3 Orientation: 0-Oriented Tacttile Disturbances: 2-Mild Itch/Numbness/Burn Auditory Disturbances: 0-None Visual Disturbances: 3-Moderate Sensitivity Headache: 0-None Present CIWA-Ar Total Score: 8 BHS Progress Note (SOAP) Subjective: Body Aches, Sweating, Fatigue. Objective: PATIENT A & O X 3. IN NO ACUTE DISTRESS. 07/13/18 15:36 Vital Signs Temperature 98.4 F 07/13/18 13:03 Pulse Rate 60 07/13/18 13:03 Respiratory Rate 17 07/13/18 13:03 Blood Pressure 102/60 07/13/18 13:03 O2 Sat by Pulse Oximetry (%) Laboratory Tests 07/12/18 07/13/18 07/13/18 14:40 05:45 05:45 WBC 4.7 RBC 4.14 Hgb 11.8 Hct 36.4 MCV 88.0 MCH 28.5 MCHC 32.4 RDW 14.7 Plt Count 139 MPV 11.1 Sodium 141 Potassium 4.0 Chloride 106 Carbon Dioxide 28 Anion Gap 7 L BUN 9 Creatinine 0.8 Creat Clearance w eGFR > 60 Random Glucose 101 Calcium 8.8 Total Bilirubin 0.5 AST 78 H ALT 95 H Alkaline Phosphatase 74 Total Protein 7.2 Albumin 3.4 RPR Titer HIV 1&2 Antibody Screen Negative HIV P24 Antigen Negative 07/13/18 05:45 WBC RBC Hgb Hct MCV MCH MCHC RDW Plt Count MPV Sodium Potassium Chloride Carbon Dioxide Anion Gap BUN Creatinine Creat Clearance w eGFR Random Glucose Calcium Total Bilirubin AST ALT Alkaline Phosphatase Total Protein Albumin RPR Titer Nonreactive HIV 1&2 Antibody Screen HIV P24 Antigen LABS NOTED. Assessment: 07/13/18 15:37 WITHDRAWAL SYMPTOMS. Plan: CONTINUE DETOX. INCREASE DAILY PO FLUID INTAKE. ENCOURAGE AMBULATION.
[2018-07-13] MEDS: QUEtiapine FUMARATE 200 MG TABLET PO SCH (22:43)
[2018-07-13] MEDS: THIAMINE HCL 100 MG TABLET (FP) PO SCH (22:43)
[2018-07-13] MEDS: HALOPERIDOL 5 MG TABLET (FP) PO SCH (22:43)
[2018-07-14] MEDS ORDERED: LEVOTHYROXINE NA 25 MCG TABLET (FP) ONE (08:45)
[2018-07-14] MEDS ORDERED: LEVOTHYROXINE NA 100 MCG TABLET (FP) ONE (08:45)
--- NOTE | 2018-07-14 09:50 | PN ---
[facility] CIWA - CIWA Score Nausea/Vomitin-No Nausea/No Vomiting Muscle Tremors: 2 Anxiety: 1-Mildly Anxious Agitation: 1-Slight > Activity Paroxysmal Sweats: 1-Minimal Palms Moist Orientation: 1-Uncertain about Date Tacttile Disturbances: 0-None Auditory Disturbances: 0-None Visual Disturbances: 0-None Headache: 1-Very Mild CIWA-Ar Total Score: 7 S Progress Note (SOAP) Subjective: patient requests synthroid taking after breakfast health teaching on purpose of synthroid and rational of taking synthroid before breakfast patient refuses to talk about and continues resting on bed sweating mild tremor Objective: 07/14/18 10:38 Vital Signs Temperature 98.1 F 07/14/18 09:11 Pulse Rate 66 07/14/18 09:11 Respiratory Rate 18 07/14/18 09:11 Blood Pressure 124/72 07/14/18 09:11 O2 Sat by Pulse Oximetry (%) Laboratory Last Values WBC 4.7 K/mm3 (4.0-10.0) 07/13/18 05:45 RBC 4.14 M/mm3 (4.00-5.60) 07/13/18 05:45 Hgb 11.8 GM/dL (11.7-16.9) 07/13/18 05:45 Hct 36.4 % (35.4-49) 07/13/18 05:45 MCV 88.0 fl (80-96) 07/13/18 05:45 MCH 28.5 pg (25.7-33.7) 07/13/18 05:45 MCHC 32.4 g/dl (32.0-35.9) 07/13/18 05:45 RDW 14.7 % (11.9-15.9) 07/13/18 05:45 Plt Count 139 K/MM3 (134-434) 07/13/18 05:45 MPV 11.1 fl (7.5-11.1) 07/13/18 05:45 Sodium 141 mmol/L (136-145) 07/13/18 05:45 Potassium 4.0 mmol/L (3.5-5.1) 07/13/18 05:45 Chloride 106 mmol/L (98-107) 07/13/18 05:45 Carbon Dioxide 28 mmol/L (21-32) 07/13/18 05:45 Anion Gap 7 MMOL/L (8-16) L 07/13/18 05:45 BUN 9 mg/dL (7-18) 07/13/18 05:45 Creatinine 0.8 mg/dL (0.55-1.3) 07/13/18 05:45 Creat Clearance w eGFR > 60 (>60) 07/13/18 05:45 Random Glucose 101 mg/dL (74-106) 07/13/18 05:45 Calcium 8.8 mg/dL (8.5-10.1) 07/13/18 05:45 Total Bilirubin 0.5 mg/dL (0.2-1) 07/13/18 05:45 AST 78 U/L (15-37) H 07/13/18 05:45 ALT 95 U/L (13-61) H 07/13/18 05:45 Alkaline Phosphatase 74 U/L (45-117) 07/13/18 05:45 Total Protein 7.2 g/dl (6.4-8.2) 07/13/18 05:45 Albumin 3.4 g/dl (3.4-5.0) 07/13/18 05:45 RPR Titer Nonreactive (NONREACTIVE) 07/13/18 05:45 HIV 1&2 Antibody Screen Negative 07/12/18 14:40 HIV P24 Antigen Negative 07/12/18 14:40 lab noted Assessment: withdrawal sx Plan: continue detox
[2018-07-14] MEDS: LEVOTHYROXINE 100 MCG, LEVOTHYROXINE 25 MCG PO SCH (10:43)
[2018-07-14] MEDS: METHADONE HCL 40 MG DISPERSABLE TABLET PO SCH (10:45)
[2018-07-14] MEDS: PRENATAL VITAMINS W/ FOLIC ACID TABLET (FP) PO SCH (10:45)
[2018-07-14] MEDS: NICOTINE 21 MG/24 HOURS TOPICAL PATCH TD SCH (10:46)
[2018-07-14] MEDS: diazePAM 5 MG TABLET PO SCH ×2 (10:46→22:22)
[2018-07-14] MEDS: diazePAM 5 MG TABLET PO PRN (17:05)
[2018-07-14] MEDS: QUEtiapine FUMARATE 200 MG TABLET PO SCH (22:22)
[2018-07-14] MEDS: HALOPERIDOL 5 MG TABLET (FP) PO SCH (22:22)
[2018-07-14] MEDS: THIAMINE HCL 100 MG TABLET (FP) PO SCH (22:22)
[2018-07-15] MEDS ORDERED: LEVOTHYROXINE NA 100 MCG TABLET (FP) ONE (04:41)
[2018-07-15] MEDS ORDERED: LEVOTHYROXINE NA 25 MCG TABLET (FP) ONE (04:41)
[2018-07-15] MEDS: LEVOTHYROXINE 100 MCG, LEVOTHYROXINE 25 MCG PO SCH (06:48)
[2018-07-15] MEDS: METHADONE HCL 40 MG DISPERSABLE TABLET PO SCH (10:21)
[2018-07-15] MEDS: NICOTINE 21 MG/24 HOURS TOPICAL PATCH TD SCH (10:22)
[2018-07-15] MEDS: diazePAM 5 MG TABLET PO SCH ×2 (10:22→22:36)
[2018-07-15] MEDS: PRENATAL VITAMINS W/ FOLIC ACID TABLET (FP) PO SCH (10:22)
--- NOTE | 2018-07-15 11:58 | PN ---
S Progress Note (SOAP) Subjective: feeling better less tremor little sweating mild gi distress Objective: 07/15/18 11:57 Vital Signs Temperature 98.6 F 07/15/18 09:08 Pulse Rate 67 07/15/18 09:08 Respiratory Rate 18 07/15/18 09:08 Blood Pressure 118/70 07/15/18 09:08 O2 Sat by Pulse Oximetry (%) Laboratory Last Values WBC 4.7 K/mm3 (4.0-10.0) 07/13/18 05:45 RBC 4.14 M/mm3 (4.00-5.60) 07/13/18 05:45 Hgb 11.8 GM/dL (11.7-16.9) 07/13/18 05:45 Hct 36.4 % (35.4-49) 07/13/18 05:45 MCV 88.0 fl (80-96) 07/13/18 05:45 MCH 28.5 pg (25.7-33.7) 07/13/18 05:45 MCHC 32.4 g/dl (32.0-35.9) 07/13/18 05:45 RDW 14.7 % (11.9-15.9) 07/13/18 05:45 Plt Count 139 K/MM3 (134-434) 07/13/18 05:45 MPV 11.1 fl (7.5-11.1) 07/13/18 05:45 Sodium 141 mmol/L (136-145) 07/13/18 05:45 Potassium 4.0 mmol/L (3.5-5.1) 07/13/18 05:45 Chloride 106 mmol/L (98-107) 07/13/18 05:45 Carbon Dioxide 28 mmol/L (21-32) 07/13/18 05:45 Anion Gap 7 MMOL/L (8-16) L 07/13/18 05:45 BUN 9 mg/dL (7-18) 07/13/18 05:45 Creatinine 0.8 mg/dL (0.55-1.3) 07/13/18 05:45 Creat Clearance w eGFR > 60 (>60) 07/13/18 05:45 Random Glucose 101 mg/dL (74-106) 07/13/18 05:45 Calcium 8.8 mg/dL (8.5-10.1) 07/13/18 05:45 Total Bilirubin 0.5 mg/dL (0.2-1) 07/13/18 05:45 AST 78 U/L (15-37) H 07/13/18 05:45 ALT 95 U/L (13-61) H 07/13/18 05:45 Alkaline Phosphatase 74 U/L (45-117) 07/13/18 05:45 Total Protein 7.2 g/dl (6.4-8.2) 07/13/18 05:45 Albumin 3.4 g/dl (3.4-5.0) 07/13/18 05:45 RPR Titer Nonreactive (NONREACTIVE) 07/13/18 05:45 HIV 1&2 Antibody Screen Negative 07/12/18 14:40 HIV P24 Antigen Negative 07/12/18 14:40 lab noted Assessment: 07/15/18 11:58 mild withdrawal sx Plan: continue detox
--- NOTE | 2018-07-15 15:22 | PN ---
[facility] Progress Note (SOAP) Subjective: Sweating, Tremors, H/A, Fatigue. Objective: PATIENT A & O X 3. IN NO ACUTE DISTRESS. 07/15/18 15:20 Vital Signs Temperature 98.2 F 07/15/18 14:05 Pulse Rate 66 07/15/18 14:05 Respiratory Rate 18 07/15/18 14:05 Blood Pressure 115/63 07/15/18 14:05 O2 Sat by Pulse Oximetry (%) Laboratory Tests 07/12/18 07/13/18 07/13/18 14:40 05:45 05:45 WBC 4.7 RBC 4.14 Hgb 11.8 Hct 36.4 MCV 88.0 MCH 28.5 MCHC 32.4 RDW 14.7 Plt Count 139 MPV 11.1 Sodium 141 Potassium 4.0 Chloride 106 Carbon Dioxide 28 Anion Gap 7 L BUN 9 Creatinine 0.8 Creat Clearance w eGFR > 60 Random Glucose 101 Calcium 8.8 Total Bilirubin 0.5 AST 78 H ALT 95 H Alkaline Phosphatase 74 Total Protein 7.2 Albumin 3.4 RPR Titer HIV 1&2 Antibody Screen Negative HIV P24 Antigen Negative 07/13/18 05:45 WBC RBC Hgb Hct MCV MCH MCHC RDW Plt Count MPV Sodium Potassium Chloride Carbon Dioxide Anion Gap BUN Creatinine Creat Clearance w eGFR Random Glucose Calcium Total Bilirubin AST ALT Alkaline Phosphatase Total Protein Albumin RPR Titer Nonreactive HIV 1&2 Antibody Screen HIV P24 Antigen LABS NOTED. Assessment: 07/15/18 15:20 WITHDRAWAL SYMPTOMS. Plan: CONTINUE DETOX. PATIENT SCHEDULED FOR D/C TOMORROW.
[2018-07-15] MEDS: HALOPERIDOL 5 MG TABLET (FP) PO SCH (22:36)
[2018-07-15] MEDS: THIAMINE HCL 100 MG TABLET (FP) PO SCH (22:36)
[2018-07-15] MEDS: QUEtiapine FUMARATE 200 MG TABLET PO SCH (22:36)
[2018-07-16] MEDS ORDERED: LEVOTHYROXINE NA 25 MCG TABLET (FP) ONE (03:16)
[2018-07-16] MEDS ORDERED: LEVOTHYROXINE NA 100 MCG TABLET (FP) ONE (03:16)
[2018-07-16] MEDS: LEVOTHYROXINE 100 MCG, LEVOTHYROXINE 25 MCG PO SCH (07:56)
[2018-07-16] MEDS: METHADONE HCL 40 MG DISPERSABLE TABLET PO SCH (09:05)
[2018-07-16] MEDS: PRENATAL VITAMINS W/ FOLIC ACID TABLET (FP) PO SCH (09:06)
[2018-07-16 09:14] VITALS: BP 125/63; PULSE 63; TEMP 97.8
[2018-07-16] MEDS ORDERED: diazePAM 5 MG TABLET PO SCH (10:00)
--- NOTE | 2018-07-16 18:42 | DS ---
[facility] Detox Discharge Summary Admission Date: 07/12/18 Discharge Date: 07/16/18 - History Present History: Alcohol Dependence, Cocaine Dependence, Opioid Dependence, Sedative Dependence, MMTP Additional Comments: PATIENT REFERRED TO '[facility] ([place], [place]) FOR AFTERCARE. PATIENT WAS DISCHARGED FROM DETOX UNIT IN STABLE MEDICAL CONDITION. Pertinent Past History: Hypothroidism, Hep A, Hep B Carrier, Hep C (Treated), Nystagmus, Paranoid Schizophrenia, Bipolar Disorder, Depression, M.M.T.P. - Physical Exam Results Vital Signs: Vital Signs Temperature 97.8 F 07/16/18 09:13 Pulse Rate 63 07/16/18 09:13 Respiratory Rate 18 07/16/18 09:13 Blood Pressure 125/63 07/16/18 09:13 O2 Sat by Pulse Oximetry (%) Pertinent Admission Physical Exam Findings: WITHDRAWAL SYMPTOMS. Laboratory Tests 07/12/18 07/13/18 07/13/18 14:40 05:45 05:45 WBC 4.7 RBC 4.14 Hgb 11.8 Hct 36.4 MCV 88.0 MCH 28.5 MCHC 32.4 RDW 14.7 Plt Count 139 MPV 11.1 Sodium 141 Potassium 4.0 Chloride 106 Carbon Dioxide 28 Anion Gap 7 L BUN 9 Creatinine 0.8 Creat Clearance w eGFR > 60 Random Glucose 101 Calcium 8.8 Total Bilirubin 0.5 AST 78 H ALT 95 H Alkaline Phosphatase 74 Total Protein 7.2 Albumin 3.4 RPR Titer HIV 1&2 Antibody Screen Negative HIV P24 Antigen Negative 07/13/18 05:45 WBC RBC Hgb Hct MCV MCH MCHC RDW Plt Count MPV Sodium Potassium Chloride Carbon Dioxide Anion Gap BUN Creatinine Creat Clearance w eGFR Random Glucose Calcium Total Bilirubin AST ALT Alkaline Phosphatase Total Protein Albumin RPR Titer Nonreactive HIV 1&2 Antibody Screen HIV P24 Antigen LABS NOTED. - Treatment Hospital Course: Detox Protocol Followed, Detoxed Safely, Responded well, Discharged Condition Good Patient has Accepted a Rehab Referral to: PATIENT GOING TO [facility] ([place], [place]). - Medication Discharge Medications: Ambulatory Orders Levothyroxine [Synthroid -] 125 mcg PO DAILY 06/08/18 Benztropine Mesylate [Cogentin -] 1 mg PO BID #60 tablet 06/14/18 Haloperidol [Haldol -] 15 mg PO HS #90 tablet 06/14/18 Quetiapine Fumarate [Seroquel -] 200 mg PO HS #30 tablet 06/14/18 - Diagnosis (1) Bipolar disorder Status: Acute Qualifiers: Active/Remission status: remission status unspecified Qualified Code(s): F31.9 - Bipolar disorder, unspecified (2) Hepatitis B carrier Status: Acute (3) Alcohol dependence with withdrawal, uncomplicated Status: Acute (4) Cocaine dependence Status: Chronic Qualifiers: Substance use status: uncomplicated Qualified Code(s): F14.20 - Cocaine dependence, uncomplicated (5) Hypothyroid Status: Chronic Qualifiers: Hypothyroidism type: unspecified Qualified Code(s): E03.9 - Hypothyroidism , unspecified (6) Methadone maintenance therapy patient Status: Chronic (7) Nicotine dependence Status: Chronic Qualifiers: Nicotine product type: cigarettes Substance use status: uncomplicated Qualified Code(s): F17.210 - Nicotine dependence, cigarettes, uncomplicated (8) Paranoid schizophrenia Status: Chronic (9) Sedative/hypnotic withdrawal without complication Status: Chronic (10) Nystagmus Status: Suspected (11) Hepatitis A Status: Acute Qualifiers: Hepatic coma status: without hepatic coma Qualified Code(s): B15.9 - Hepatitis A without hepatic coma (12) Hepatitis C carrier Status: Chronic - AMA Did Patient Leave Against Medical Advice: No
== END 2018-07-16 09:12 | disposition home or self-care (01) | DRG 773 ==
LOC: YASAS 11:10 → Y3N 14:31
PROVIDERS: ADMIT Neuromusculoskeletal Medicine & OMM; ATTEND Neuromusculoskeletal Medicine & OMM
PROC: HZ2ZZZZ Detoxification Services for Substance Abuse Treatment (ICD-10-PCS; principal; 2018-07-12)
DX: F10.230 Alcohol dependence with withdrawal, uncomplicated (principal); F13.230 Sedative, hypnotic or anxiolytic dependence with withdrawal, uncomplicated; F14.20 Cocaine dependence, uncomplicated; F11.20 Opioid dependence, uncomplicated; F17.210 Nicotine dependence, cigarettes, uncomplicated; F20.0 Paranoid schizophrenia; F31.9 Bipolar disorder, unspecified; E03.9 Hypothyroidism, unspecified; B19.20 Unspecified viral hepatitis C without hepatic coma; R03.0 Elevated blood-pressure reading, without diagnosis of hypertension; Z86.19 Personal history of other infectious and parasitic diseases; H55.00 Unspecified nystagmus
CPT/HCPCS: 36415; 80053; 85027; 86593; 87389

== ENCOUNTER 2022-11-19 16:34 | Inpatient (IN) | payer OTHER ==
[2022-11-19 17:26] VITALS: BMI 25.9
[2022-11-19] MEDS ORDERED: MAG HYDROX/AL HYDROX/SIMETH 30 ML UNIT-DOSE CUP PO PRN (18:10)
[2022-11-19] MEDS ORDERED: BENZOCAINE/MENTHOL (CHLORASEPTIC ) LOZENGE MM PRN (18:10)
[2022-11-19] MEDS ORDERED: NALOXONE HCL 0.4 MG/ML VIAL IM PRN (18:10)
[2022-11-19] MEDS ORDERED: BENZONATATE 200 MG CAPSULE PO PRN (18:10)
[2022-11-19] MEDS ORDERED: MAGNESIUM HYDROX 2400MG/30ML ORAL SUSPENSION 30 ML CUP PO PRN (18:10)
[2022-11-19] MEDS ORDERED: POLYETHYLENE GLYCOL (HEALTHYLAX) 3350 17 GM PACKET PO PRN (18:10)
[2022-11-19] MEDS ORDERED: ACETAMINOPHEN 325 MG TABLET (FP) PO PRN ×2 (18:10)
[2022-11-19] MEDS ORDERED: guaiFENesin 600 MG TABLET.ER (FP) PO PRN (18:10)
[2022-11-19] MEDS ORDERED: NICOTINE POLACRILEX 2 MG GUM BUC PRN (18:10)
[2022-11-19] MEDS ORDERED: IBUPROFEN 600 MG TABLET (FP) PO PRN (18:10)
[2022-11-19] MEDS ORDERED: ONDANSETRON *ODT* 4 MG TABLET SL PRN (18:10)
[2022-11-19] MEDS ORDERED: hydrOXYzine PAMOATE 25 MG CAPSULE (FP) PO PRN (18:10)
[2022-11-19] MEDS ORDERED: DICYCLOMINE HCL 10 MG CAPSULE PO PRN (18:10)
[2022-11-19] MEDS ORDERED: NALOXONE HCL (KLOXXADO) 8 MG SPRAY NS PRN (18:10)
[2022-11-19] MEDS ORDERED: P-EPHED 60MG/TRIPROLIDI 2.5MG TABLET PO PRN (18:10)
[2022-11-19] MEDS ORDERED: BISMUTH SUBSALICYLATE 524 MG/30 ML PO PRN (18:10)
[2022-11-19] MEDS ORDERED: LOPERAMIDE HCL 2 MG CAPSULE PO PRN (18:10)
[2022-11-19] MEDS ORDERED: IBUPROFEN 400 MG TABLET (FP) PO PRN (18:10)
[2022-11-19] MEDS: METHOCARBAMOL 500 MG TABLET PO PRN (22:34)
[2022-11-19] MEDS: MELATONIN 5 MG TABLETS PO SCH (22:34)
[2022-11-19] MEDS: THIAMINE HCL 100 MG TABLET (FP) PO SCH (22:35)
[2022-11-20] MEDS ORDERED: diazePAM 5 MG TABLET PO PRN (09:48)
[2022-11-20] MEDS ORDERED: methaDONE HCL 40 MG DISPERSABLE TABLET PO SCH (11:00)
[2022-11-20] MEDS: PRENATAL VITAMINS W/ FOLIC ACID TABLET (FP) PO SCH (11:07)
[2022-11-20] MEDS: NICOTINE 7 MG/24 HOURS TOPICAL PATCH TD SCH ×2 (11:07→11:30)
[2022-11-20] MEDS: methaDONE 40 MG, methaDONE 10 MG PO SCH (11:13)
[2022-11-20] MEDS: METHOCARBAMOL 500 MG TABLET PO PRN (11:13)
[2022-11-20 11:30] LABS: POTASSIUM 4.4 mmol/L (3.5-5.1)
[2022-11-20 11:32] LABS: HEMOGLOBIN 12.6 GM/dL (11.7-16.9); MCH 28.4 pg (25.7-33.7); MCHC 33.2 g/dl (32.0-35.9); MEAN CELL VOLUME 85.5 fl (80-96); PLATELET COUNT 152 10^3/uL (134-434); RBC 4.45 M/mm3 (4.00-5.60); RDW 14.5 % (11.9-15.9); WHITE BLOOD COUNT 3.3 K/mm3 (4.0-10.0)
[2022-11-20 11:35] LABS: BLOOD UREA NITROGEN 20.7 mg/dL (7-18); CALCIUM 8.2 mg/dL (8.5-10.1)
[2022-11-20 11:38] LABS: CREATININE 0.7 mg/dL (0.55-1.3)
[2022-11-20 11:39] LABS: BILIRUBIN,TOTAL 0.4 mg/dL (0.2-1); TOT PROT 6.4 g/dl (6.4-8.2)
[2022-11-20] MEDS: THIAMINE HCL 100 MG TABLET (FP) PO SCH (22:11)
[2022-11-20] MEDS: MELATONIN 5 MG TABLETS PO SCH (22:11)
[2022-11-21] MEDS: methaDONE 40 MG, methaDONE 10 MG PO SCH (05:41)
[2022-11-21] MEDS: NICOTINE 7 MG/24 HOURS TOPICAL PATCH TD SCH (10:24)
[2022-11-21] MEDS: PRENATAL VITAMINS W/ FOLIC ACID TABLET (FP) PO SCH (10:24)
[2022-11-21] MEDS ORDERED: LITHIUM CARBONATE 300 MG CAPSULE PO SCH (14:00)
[2022-11-21 17:37] VITALS: BP 119/65; PULSE 53; RESP 17; TEMP 97.5
[2022-11-21] MEDS ORDERED: QUEtiapine FUMARATE 200 MG TABLET PO SCH (22:00)
== END 2022-11-21 18:18 | disposition other institution (70) | DRG 773 ==
LOC: YASAS 16:34 → Y6N 18:07 → UNDOADMIN 18:07
PROVIDERS: ADMIT Allergy & Immunology; ATTEND Surgery
PROC: HZ2ZZZZ Detoxification Services for Substance Abuse Treatment (ICD-10-PCS; principal; 2022-11-19)
DX: F13.230 Sedative, hypnotic or anxiolytic dependence with withdrawal, uncomplicated (principal); F11.20 Opioid dependence, uncomplicated; F10.20 Alcohol dependence, uncomplicated; F14.20 Cocaine dependence, uncomplicated; F17.210 Nicotine dependence, cigarettes, uncomplicated; F19.282 Other psychoactive substance dependence with psychoactive substance-induced sleep disorder; F19.280 Other psychoactive substance dependence with psychoactive substance-induced anxiety disorder; F31.9 Bipolar disorder, unspecified; Z62.810 Personal history of physical and sexual abuse in childhood; Z86.19 Personal history of other infectious and parasitic diseases; Z28.310 Unvaccinated for COVID-19; Z28.9 Immunization not carried out for unspecified reason; Z88.0 Allergy status to penicillin; Z91.013 Allergy to seafood
CPT/HCPCS: 36415; 80053; 85027; 86780; C9803-CS; U0003; U0005

== ENCOUNTER 2022-11-21 18:32 | Inpatient (IN) | payer OTHER ==
[2022-11-21] MEDS ORDERED: COLLOIDAL OATMEAL 1 BAR EACH TP PRN (18:52)
[2022-11-21] MEDS ORDERED: NALOXONE HCL 0.4 MG/ML VIAL IVPUSH PRN (18:52)
[2022-11-21] MEDS ORDERED: NALOXONE HCL (KLOXXADO) 8 MG SPRAY NS PRN (18:52)
[2022-11-21] MEDS ORDERED: AMMONIUM LACTATE 12% LOTION 225 GM BOTTLE TP PRN (18:52)
[2022-11-21] MEDS ORDERED: IBUPROFEN 400 MG TABLET (FP) PO PRN (18:52)
[2022-11-21] MEDS ORDERED: IBUPROFEN 600 MG TABLET (FP) PO PRN (18:52)
[2022-11-21] MEDS ORDERED: LOPERAMIDE HCL 2 MG CAPSULE PO PRN (18:52)
[2022-11-21] MEDS ORDERED: ACETAMINOPHEN 325 MG TABLET (FP) PO PRN (18:52)
[2022-11-21] MEDS ORDERED: METHOCARBAMOL 500 MG TABLET PO PRN (18:52)
[2022-11-21] MEDS ORDERED: BENZOCAINE/MENTHOL (CHLORASEPTIC ) LOZENGE MM PRN (18:52)
[2022-11-21] MEDS ORDERED: hydrOXYzine PAMOATE 25 MG CAPSULE (FP) PO PRN (18:52)
[2022-11-21] MEDS ORDERED: MAGNESIUM HYDROX 2400MG/30ML ORAL SUSPENSION 30 ML CUP PO PRN (18:52)
[2022-11-21] MEDS ORDERED: MAG HYDROX/AL HYDROX/SIMETH 30 ML UNIT-DOSE CUP PO PRN (18:52)
[2022-11-21] MEDS ORDERED: BENZONATATE 200 MG CAPSULE PO PRN (18:52)
[2022-11-21] MEDS ORDERED: POLYETHYLENE GLYCOL (HEALTHYLAX) 3350 17 GM PACKET PO PRN (18:52)
[2022-11-21] MEDS ORDERED: P-EPHED 60MG/TRIPROLIDI 2.5MG TABLET PO PRN (18:52)
[2022-11-21] MEDS ORDERED: guaiFENesin 600 MG TABLET.ER (FP) PO PRN (18:52)
[2022-11-21] MEDS: MELATONIN 5 MG TABLETS PO SCH (21:34)
[2022-11-21] MEDS: THIAMINE HCL 100 MG TABLET (FP) PO SCH (21:34)
[2022-11-22] MEDS ORDERED: methaDONE HCL 10 MG TABLET PO SCH (07:15)
[2022-11-22] MEDS: methaDONE 40 MG, methaDONE 10 MG PO SCH (07:31)
[2022-11-22] MEDS: PRENATAL VITAMINS W/ FOLIC ACID TABLET (FP) PO SCH (10:03)
[2022-11-22] MEDS: NICOTINE POLACRILEX 2 MG GUM BUC PRN ×2 (13:59→21:18)
[2022-11-22] MEDS: MELATONIN 5 MG TABLETS PO SCH (21:17)
[2022-11-22] MEDS: THIAMINE HCL 100 MG TABLET (FP) PO SCH (21:17)
[2022-11-23] MEDS: methaDONE 40 MG, methaDONE 10 MG PO SCH (06:17)
[2022-11-23] MEDS: NICOTINE POLACRILEX 2 MG GUM BUC PRN ×2 (08:32→13:07)
[2022-11-23] MEDS: PRENATAL VITAMINS W/ FOLIC ACID TABLET (FP) PO SCH (10:18)
[2022-11-23] MEDS: THIAMINE HCL 100 MG TABLET (FP) PO SCH (21:08)
[2022-11-23] MEDS: MELATONIN 5 MG TABLETS PO SCH (21:08)
[2022-11-24] MEDS: methaDONE 40 MG, methaDONE 10 MG PO SCH (06:36)
[2022-11-24] MEDS: NICOTINE POLACRILEX 2 MG GUM BUC PRN ×3 (06:38→21:24)
[2022-11-24] MEDS: PRENATAL VITAMINS W/ FOLIC ACID TABLET (FP) PO SCH (10:18)
[2022-11-24] MEDS: MELATONIN 5 MG TABLETS PO SCH (21:24)
[2022-11-24] MEDS: THIAMINE HCL 100 MG TABLET (FP) PO SCH (21:24)
[2022-11-25] MEDS: methaDONE 40 MG, methaDONE 10 MG PO SCH (06:37)
[2022-11-25] MEDS: NICOTINE POLACRILEX 2 MG GUM BUC PRN ×3 (09:46→16:32)
[2022-11-25] MEDS: PRENATAL VITAMINS W/ FOLIC ACID TABLET (FP) PO SCH (09:46)
[2022-11-25] MEDS: THIAMINE HCL 100 MG TABLET (FP) PO SCH (21:14)
[2022-11-25] MEDS: MELATONIN 5 MG TABLETS PO SCH (21:14)
[2022-11-26] MEDS: methaDONE 40 MG, methaDONE 10 MG PO SCH (06:02)
[2022-11-26] MEDS: PRENATAL VITAMINS W/ FOLIC ACID TABLET (FP) PO SCH (10:14)
[2022-11-26] MEDS: NICOTINE POLACRILEX 2 MG GUM BUC PRN ×2 (10:15→21:26)
[2022-11-26] MEDS: MELATONIN 5 MG TABLETS PO SCH (21:25)
[2022-11-26] MEDS: THIAMINE HCL 100 MG TABLET (FP) PO SCH (21:25)
[2022-11-27] MEDS: methaDONE 40 MG, methaDONE 10 MG PO SCH (06:15)
[2022-11-27] MEDS: PRENATAL VITAMINS W/ FOLIC ACID TABLET (FP) PO SCH (10:16)
[2022-11-27] MEDS: NICOTINE POLACRILEX 2 MG GUM BUC PRN (10:16)
[2022-11-27] MEDS: NICOTINE 10 MG CARTRIDGE (INHALER) IH PRN ×2 (10:17→21:05)
[2022-11-27] MEDS: THIAMINE HCL 100 MG TABLET (FP) PO SCH (21:05)
[2022-11-27] MEDS: MELATONIN 5 MG TABLETS PO SCH (21:05)
[2022-11-28] MEDS: methaDONE 40 MG, methaDONE 10 MG PO SCH (06:00)
[2022-11-28] MEDS ORDERED: hydrOXYzine PAMOATE 25 MG CAPSULE (FP) PO PRN (08:43)
[2022-11-28] MEDS ORDERED: LEVOTHYROXINE 100 MCG, LEVOTHYROXINE 25 MCG PO ONE (09:00)
[2022-11-28] MEDS: PRENATAL VITAMINS W/ FOLIC ACID TABLET (FP) PO SCH (09:43)
[2022-11-28] MEDS: LITHIUM CARBONATE 300 MG CAPSULE PO SCH ×2 (09:43→21:21)
[2022-11-28] MEDS ORDERED: LEVOTHYROXINE NA 125 MCG TABLET (FP) PO SCH (10:00)
[2022-11-28] MEDS: NICOTINE 10 MG CARTRIDGE (INHALER) IH PRN ×2 (12:57→21:19)
[2022-11-28] MEDS: NICOTINE POLACRILEX 2 MG GUM BUC PRN (12:57)
[2022-11-28] MEDS: QUEtiapine FUMARATE 100 MG TABLET (FP) PO SCH (21:19)
[2022-11-28] MEDS: THIAMINE HCL 100 MG TABLET (FP) PO SCH (21:19)
[2022-11-28] MEDS ORDERED: QUEtiapine FUMARATE 200 MG TABLET PO SCH (22:00)
[2022-11-29] MEDS: methaDONE 40 MG, methaDONE 10 MG PO SCH (06:09)
[2022-11-29] MEDS: LEVOTHYROXINE 100 MCG, LEVOTHYROXINE 25 MCG PO SCH (06:35)
[2022-11-29] MEDS: PRENATAL VITAMINS W/ FOLIC ACID TABLET (FP) PO SCH (09:51)
[2022-11-29] MEDS: NICOTINE POLACRILEX 2 MG GUM BUC PRN ×2 (09:52→21:25)
[2022-11-29] MEDS: LITHIUM CARBONATE 300 MG CAPSULE PO SCH ×2 (09:53→21:24)
[2022-11-29] MEDS: QUEtiapine FUMARATE 100 MG TABLET (FP) PO SCH (21:24)
[2022-11-29] MEDS: NICOTINE 10 MG CARTRIDGE (INHALER) IH PRN (21:25)
[2022-11-29] MEDS: THIAMINE HCL 100 MG TABLET (FP) PO SCH (21:25)
[2022-11-30] MEDS: LEVOTHYROXINE 100 MCG, LEVOTHYROXINE 25 MCG PO SCH (06:28)
[2022-11-30] MEDS: methaDONE 40 MG, methaDONE 10 MG PO SCH (06:29)
[2022-11-30] MEDS: NICOTINE POLACRILEX 2 MG GUM BUC PRN ×3 (06:30→21:17)
[2022-11-30] MEDS: PRENATAL VITAMINS W/ FOLIC ACID TABLET (FP) PO SCH (10:17)
[2022-11-30] MEDS: NICOTINE 10 MG CARTRIDGE (INHALER) IH PRN ×2 (10:17→21:17)
[2022-11-30] MEDS: LITHIUM CARBONATE 300 MG CAPSULE PO SCH ×2 (10:17→21:16)
[2022-11-30] MEDS: MELATONIN 5 MG TABLETS PO SCH (21:16)
[2022-11-30] MEDS: THIAMINE HCL 100 MG TABLET (FP) PO SCH (21:17)
[2022-11-30] MEDS: QUEtiapine FUMARATE 100 MG TABLET (FP) PO SCH (21:17)
[2022-12-01] MEDS: NICOTINE POLACRILEX 2 MG GUM BUC PRN ×4 (05:59→18:43)
[2022-12-01] MEDS: methaDONE 40 MG, methaDONE 10 MG PO SCH (05:59)
[2022-12-01] MEDS: LEVOTHYROXINE 100 MCG, LEVOTHYROXINE 25 MCG PO SCH (06:48)
[2022-12-01] MEDS: PRENATAL VITAMINS W/ FOLIC ACID TABLET (FP) PO SCH (09:51)
[2022-12-01] MEDS: LITHIUM CARBONATE 300 MG CAPSULE PO SCH ×2 (09:51→21:07)
[2022-12-01] MEDS: NICOTINE 10 MG CARTRIDGE (INHALER) IH PRN ×2 (09:52→18:43)
[2022-12-01] MEDS: THIAMINE HCL 100 MG TABLET (FP) PO SCH (21:07)
[2022-12-01] MEDS: QUEtiapine FUMARATE 100 MG TABLET (FP) PO SCH (21:07)
[2022-12-01] MEDS: MELATONIN 5 MG TABLETS PO SCH (21:07)
[2022-12-02] MEDS: LEVOTHYROXINE 100 MCG, LEVOTHYROXINE 25 MCG PO SCH (06:25)
[2022-12-02] MEDS: methaDONE 40 MG, methaDONE 10 MG PO SCH (06:25)
[2022-12-02 07:19] VITALS: RESP 18
[2022-12-02] MEDS: PRENATAL VITAMINS W/ FOLIC ACID TABLET (FP) PO SCH (09:51)
[2022-12-02] MEDS: LITHIUM CARBONATE 300 MG CAPSULE PO SCH ×2 (09:51→21:25)
[2022-12-02] MEDS: NICOTINE 10 MG CARTRIDGE (INHALER) IH PRN (09:52)
[2022-12-02] MEDS: NICOTINE POLACRILEX 2 MG GUM BUC PRN (09:52)
[2022-12-02] MEDS: QUEtiapine FUMARATE 100 MG TABLET (FP) PO SCH (21:24)
[2022-12-02] MEDS: THIAMINE HCL 100 MG TABLET (FP) PO SCH (21:24)
[2022-12-02] MEDS: MELATONIN 5 MG TABLETS PO SCH (21:24)
[2022-12-03] MEDS: NICOTINE 10 MG CARTRIDGE (INHALER) IH PRN ×2 (06:08→21:15)
[2022-12-03] MEDS: methaDONE 40 MG, methaDONE 10 MG PO SCH (06:09)
[2022-12-03] MEDS: LEVOTHYROXINE 100 MCG, LEVOTHYROXINE 25 MCG PO SCH (06:09)
[2022-12-03] MEDS: PRENATAL VITAMINS W/ FOLIC ACID TABLET (FP) PO SCH (10:14)
[2022-12-03] MEDS: NICOTINE POLACRILEX 2 MG GUM BUC PRN ×2 (10:15→21:15)
[2022-12-03] MEDS: LITHIUM CARBONATE 300 MG CAPSULE PO SCH ×2 (10:15→21:15)
[2022-12-03] MEDS: MELATONIN 5 MG TABLETS PO SCH (21:14)
[2022-12-03] MEDS: QUEtiapine FUMARATE 100 MG TABLET (FP) PO SCH (21:14)
[2022-12-03] MEDS: THIAMINE HCL 100 MG TABLET (FP) PO SCH (21:14)
[2022-12-04] MEDS: LEVOTHYROXINE 100 MCG, LEVOTHYROXINE 25 MCG PO SCH (06:22)
[2022-12-04] MEDS: methaDONE 40 MG, methaDONE 10 MG PO SCH (06:22)
[2022-12-04] MEDS: NICOTINE 10 MG CARTRIDGE (INHALER) IH PRN ×3 (06:23→21:33)
[2022-12-04] MEDS: NICOTINE POLACRILEX 2 MG GUM BUC PRN ×3 (06:25→21:33)
[2022-12-04] MEDS: PRENATAL VITAMINS W/ FOLIC ACID TABLET (FP) PO SCH (09:51)
[2022-12-04] MEDS: LITHIUM CARBONATE 300 MG CAPSULE PO SCH ×2 (09:51→21:32)
[2022-12-04] MEDS: MELATONIN 5 MG TABLETS PO SCH (21:31)
[2022-12-04] MEDS: THIAMINE HCL 100 MG TABLET (FP) PO SCH (21:32)
[2022-12-04] MEDS: QUEtiapine FUMARATE 100 MG TABLET (FP) PO SCH (21:32)
[2022-12-05] MEDS: methaDONE 40 MG, methaDONE 10 MG PO SCH (06:15)
[2022-12-05] MEDS: NICOTINE 10 MG CARTRIDGE (INHALER) IH PRN (06:16)
[2022-12-05] MEDS: LEVOTHYROXINE 100 MCG, LEVOTHYROXINE 25 MCG PO SCH (06:16)
[2022-12-05 07:02] VITALS: BP 139/80; PULSE 61; TEMP 97.7
[2022-12-05] MEDS: LITHIUM CARBONATE 300 MG CAPSULE PO SCH (10:58)
[2022-12-05] MEDS: PRENATAL VITAMINS W/ FOLIC ACID TABLET (FP) PO SCH (10:59)
== END 2022-12-05 09:48 | disposition home or self-care (01) | DRG 772 ==
LOC: YASAS 18:32 → Y3W 18:33
PROVIDERS: ADMIT Allergy & Immunology; ATTEND Psychiatry & Neurology Pain Medicine
PROC: HZ42ZZZ Group Counseling for Substance Abuse Treatment, Cognitive-Behavioral (ICD-10-PCS; principal; 2022-11-21)
DX: F11.20 Opioid dependence, uncomplicated (principal); F13.20 Sedative, hypnotic or anxiolytic dependence, uncomplicated; F15.20 Other stimulant dependence, uncomplicated; F17.210 Nicotine dependence, cigarettes, uncomplicated; F19.280 Other psychoactive substance dependence with psychoactive substance-induced anxiety disorder; F31.9 Bipolar disorder, unspecified; E03.9 Hypothyroidism, unspecified; Z88.0 Allergy status to penicillin; Z91.013 Allergy to seafood

== ENCOUNTER 2023-01-20 15:08 | Inpatient (IN) | payer OTHER ==
[2023-01-20 16:57] VITALS: BMI 25.8
[2023-01-20] MEDS ORDERED: LOPERAMIDE HCL 2 MG CAPSULE PO PRN (18:00)
[2023-01-20] MEDS ORDERED: BISMUTH SUBSALICYLATE 524 MG/30 ML PO PRN (18:00)
[2023-01-20] MEDS ORDERED: MAG HYDROX/AL HYDROX/SIMETH 30 ML UNIT-DOSE CUP PO PRN (18:00)
[2023-01-20] MEDS ORDERED: NICOTINE POLACRILEX 2 MG GUM BUC PRN (18:00)
[2023-01-20] MEDS ORDERED: guaiFENesin 600 MG TABLET.ER (FP) PO PRN (18:00)
[2023-01-20] MEDS ORDERED: MAGNESIUM HYDROX 2400MG/30ML ORAL SUSPENSION 30 ML CUP PO PRN (18:00)
[2023-01-20] MEDS ORDERED: POLYETHYLENE GLYCOL (HEALTHYLAX) 3350 17 GM PACKET PO PRN (18:00)
[2023-01-20] MEDS ORDERED: DICYCLOMINE HCL 10 MG CAPSULE PO PRN (18:00)
[2023-01-20] MEDS ORDERED: ONDANSETRON *ODT* 4 MG TABLET SL PRN (18:00)
[2023-01-20] MEDS ORDERED: hydrOXYzine PAMOATE 25 MG CAPSULE (FP) PO PRN (18:00)
[2023-01-20] MEDS ORDERED: BENZOCAINE/MENTHOL (CHLORASEPTIC ) LOZENGE MM PRN (18:00)
[2023-01-20] MEDS ORDERED: IBUPROFEN 600 MG TABLET (FP) PO PRN (18:00)
[2023-01-20] MEDS ORDERED: P-EPHED 60MG/TRIPROLIDI 2.5MG TABLET PO PRN (18:00)
[2023-01-20] MEDS ORDERED: NALOXONE HCL 0.4 MG/ML VIAL IM PRN (18:00)
[2023-01-20] MEDS ORDERED: BENZONATATE 200 MG CAPSULE PO PRN (18:00)
[2023-01-20] MEDS ORDERED: ACETAMINOPHEN 325 MG TABLET (FP) PO PRN (18:00)
[2023-01-20] MEDS ORDERED: IBUPROFEN 400 MG TABLET (FP) PO PRN (18:00)
[2023-01-20] MEDS ORDERED: NALOXONE HCL (KLOXXADO) 8 MG SPRAY NS PRN (18:00)
[2023-01-20] MEDS: MELATONIN 5 MG TABLETS PO SCH (22:20)
[2023-01-20] MEDS: METHOCARBAMOL 500 MG TABLET PO PRN (22:20)
[2023-01-20] MEDS: THIAMINE HCL 100 MG TABLET (FP) PO SCH (22:20)
[2023-01-20] MEDS: diazePAM 5 MG TABLET PO SCH (22:21)
[2023-01-21] MEDS: diazePAM 5 MG TABLET PO SCH ×4 (05:37→22:17)
[2023-01-21] MEDS ORDERED: LEVOTHYROXINE NA 125 MCG TABLET (FP) PO SCH (07:00)
[2023-01-21] MEDS: PRENATAL VITAMINS W/ FOLIC ACID TABLET (FP) PO SCH (10:29)
[2023-01-21] MEDS ORDERED: methaDONE HCL 10 MG TABLET PO SCH (11:15)
[2023-01-21] MEDS: methaDONE 40 MG, methaDONE 10 MG PO SCH (11:34)
[2023-01-21 12:15] LABS: HEMATOCRIT 38.1 % (35.4-49); HEMOGLOBIN 12.3 GM/dL (11.7-16.9); MCH 28.1 pg (25.7-33.7); MCHC 32.2 g/dl (32.0-35.9); MEAN CELL VOLUME 87.4 fl (80-96); MEAN PLT VOLUME 9.7 fl (7.5-11.1); PLATELET COUNT 139 10^3/uL (134-434); RBC 4.36 M/mm3 (4.00-5.60); RDW 13.6 % (11.9-15.9); WHITE BLOOD COUNT 3.7 K/mm3 (4.0-10.0)
[2023-01-21 12:26] LABS: POTASSIUM 3.9 mmol/L (3.5-5.1)
[2023-01-21 13:09] LABS: CALCIUM 8.3 mg/dL (8.5-10.1)
[2023-01-21 13:10] LABS: BLOOD UREA NITROGEN 16.2 mg/dL (7-18)
[2023-01-21 13:11] LABS: ALBUMIN 3.1 g/dl (3.4-5.0)
[2023-01-21 13:13] LABS: CREATININE 0.9 mg/dL (0.55-1.3)
[2023-01-21 13:14] LABS: BILIRUBIN,TOTAL 0.1 mg/dL (0.2-1); TOT PROT 6.6 g/dl (6.4-8.2)
[2023-01-21] MEDS: MELATONIN 5 MG TABLETS PO SCH (22:15)
[2023-01-21] MEDS: METHOCARBAMOL 500 MG TABLET PO PRN (22:15)
[2023-01-21] MEDS: THIAMINE HCL 100 MG TABLET (FP) PO SCH (22:16)
[2023-01-22] MEDS: methaDONE 40 MG, methaDONE 10 MG PO SCH (05:38)
[2023-01-22] MEDS: diazePAM 5 MG TABLET PO SCH ×3 (05:38→22:13)
[2023-01-22] MEDS: LEVOTHYROXINE 100 MCG, LEVOTHYROXINE 25 MCG PO SCH (06:13)
[2023-01-22] MEDS: PRENATAL VITAMINS W/ FOLIC ACID TABLET (FP) PO SCH (10:16)
[2023-01-22] MEDS: diazePAM 5 MG TABLET PO PRN (10:17)
[2023-01-22 21:10] VITALS: RESP 16
[2023-01-22] MEDS: METHOCARBAMOL 500 MG TABLET PO PRN (22:13)
[2023-01-22] MEDS: MELATONIN 5 MG TABLETS PO SCH (22:13)
[2023-01-22] MEDS: THIAMINE HCL 100 MG TABLET (FP) PO SCH (22:13)
[2023-01-23] MEDS: methaDONE 40 MG, methaDONE 10 MG PO SCH (05:36)
[2023-01-23] MEDS ORDERED: diazePAM 5 MG TABLET PO SCH (06:00)
[2023-01-23] MEDS: LEVOTHYROXINE 100 MCG, LEVOTHYROXINE 25 MCG PO SCH (06:12)
[2023-01-23 08:37] VITALS: BP 108/60; PULSE 60; TEMP 97.7
[2023-01-23] MEDS: PRENATAL VITAMINS W/ FOLIC ACID TABLET (FP) PO SCH (10:24)
[2023-01-23] MEDS: diazePAM 5 MG TABLET PO PRN (10:25)
[2023-01-24] MEDS ORDERED: diazePAM 5 MG TABLET PO ONE (06:00)
== END 2023-01-23 12:05 | disposition home or self-care (01) | DRG 773 ==
LOC: YASAS 15:08 → Y3N 17:58
PROVIDERS: ADMIT Allergy & Immunology; ATTEND Surgery
PROC: HZ2ZZZZ Detoxification Services for Substance Abuse Treatment (ICD-10-PCS; principal; 2023-01-20)
DX: F10.230 Alcohol dependence with withdrawal, uncomplicated (principal); F11.20 Opioid dependence, uncomplicated; F13.20 Sedative, hypnotic or anxiolytic dependence, uncomplicated; F14.20 Cocaine dependence, uncomplicated; F17.210 Nicotine dependence, cigarettes, uncomplicated; F25.0 Schizoaffective disorder, bipolar type; E06.9 Thyroiditis, unspecified; Z86.69 Personal history of other diseases of the nervous system and sense organs; Z86.19 Personal history of other infectious and parasitic diseases; Z28.310 Unvaccinated for COVID-19; Z28.9 Immunization not carried out for unspecified reason; Z88.0 Allergy status to penicillin; Z91.013 Allergy to seafood
CPT/HCPCS: 36415; 80053; 85027; 86780; 87635